=== PATIENT | male | born 1970 | race Two or more races ===

== ENCOUNTER 2022-12-31 06:16 | Day surgery (SDC) | payer OTHER, SELFPAY ==
[2022-12-31 06:36] VITALS: BP 172/81; PULSE 95; RESP 20; TEMP 36.3; O2SAT 97; BMI 60.4
[2022-12-31 06:45] LABS: Glucometer 114 mg/dL (74-106)
[2022-12-31] MEDS: LACTATED RINGER'S SOLUTION 1,000 ML 50 ML IV (07:18)
[2022-12-31 08:09] VITALS: BP 175/87; PULSE 77; RESP 20; TEMP 36.1; O2SAT 96
--- NOTE | 2022-12-31 08:16 | OP_ITS ---
OPERATION DATE: ??12/31/2022 PREOPERATIVE DIAGNOSIS:? Anemia. POSTOPERATIVE DIAGNOSIS: Antral gastritis and small superficial ulcerations, large sigmoid polyp. PROCEDURE:? EGD with antral biopsy and colonoscopy to cecum with hot snare polypectomy x1 for distal sigmoid polyp. SURGEON:? Logan Ramirez M.D. ANESTHESIA:? Monitored anesthesia care. ESTIMATED BLOOD LOSS:? Less than 1 mL. INDICATIONS AND CONSENT:? Patient is a 62-year-old male presents for evaluation of anemia.? Indications, risks, benefits, alternatives of proceeding with EGD and colonoscopy were explained extensively to the patient, including the risks of bleeding, aspiration, esophageal/gastric/duodenal or colonic perforation or anesthetic complications.? All of his questions were answered.? Informed consent was obtained. PROCEDURE:? Patient was brought to the operating room, placed in the left lateral decubitus position.? Monitored anesthesia care was provided.? Bite block was placed in the patient?s mouth.? Scope was entered into the oropharynx.? Under direct visualization, it was advanced into the esophagus, past the cricopharyngeus, down to the stomach.? The stomach was insufflated with air.? The pylorus was traversed down to the descending portion of the duodenum.? There was no evidence of duodenitis or ulceration.? There was no scarring within the pyloric channel.?? Scope was pulled back into the stomach and retroflexed.? There was no significant hiatal hernia.? Within the antrum, there was noted to be some mild antral gastritis with some superficial ulcerations.? No old or new blood.? Biopsies were obtained with cold biopsy forceps with good hemostasis.? The GE junction was noted at approximately 42 cm.? There was noted to be some mild distal esophagitis without Reed?s changes. The remainder of the esophagus was unremarkable.? The scope was then withdrawn.? Patient was then positioned for colonoscopy.? Rectal exam was performed, which showed no masses or blood.? The scope was then inserted into the anal canal.? Under direct visualization, it was advanced.? It was advanced to the cecum where cecal markings were clearly identified.? There was noted to be a fair prep with some liquid and semi-solid stool throughout the colon that was partially irrigated clear.? Upon withdrawal of the scope, mucosal surfaces were carefully examined.? There were no inflammatory changes or ulcerations.? There was no significant diverticulosis.? In the distal sigmoid, at approximately 35 cm, there was noted to be a large 2.5 cm pedunculated polyp that was removed with snare in a piecemeal fashion.? There was good hemostasis. The scope was retroflexed in the anal canal.? There were prominent rectal veins.? No significant hemorrhoidal disease.? The scope was then withdrawn.? The patient tolerated procedure well, was sent to recovery room in good condition. f/u colonoscopy should be in 5 years, but may change based on pathology. CC:? Patient?s family physician MIRZA
[2022-12-31 08:24] VITALS: BP 169/87; PULSE 71; RESP 18; TEMP 36.6; O2SAT 96
[2022-12-31 08:39] VITALS: BP 175/80; PULSE 73; RESP 18; TEMP 36.3; O2SAT 96
== END 2022-12-31 09:00 | disposition home or self-care (01) ==
PROVIDERS: PCP Family Medicine; Visit Provider Surgery
PROC: (CPT 43239; principal; 2022-12-31 07:30)
DX: D12.5 Benign neoplasm of sigmoid colon (principal); D64.9 Anemia, unspecified; E11.9 Type 2 diabetes mellitus without complications; E66.01 Morbid (severe) obesity due to excess calories; E78.1 Pure hyperglyceridemia; Z68.44 Body mass index [BMI] 60.0-69.9, adult; Z79.84 Long term (current) use of oral hypoglycemic drugs; Z87.891 Personal history of nicotine dependence; K25.9 Gastric ulcer, unspecified as acute or chronic, without hemorrhage or perforation; K20.90 Esophagitis, unspecified without bleeding
CPT/HCPCS: 43239; 45385; 36415; 82948; 88305; 88342; J2704

== ENCOUNTER 2023-12-24 06:50 | Outpatient (OUT) | payer OTHER, SELFPAY ==
[2023-12-24 07:09] LABS: Basophils Absolute Auto 0.1 10^3/uL (0.0-0.1); Basophils Percent Auto 0.4 % (0.2-2.0); Eosinophils Absolute Auto 0.1 10^3/uL (0.0-0.7); Eosinophils Percent Auto 0.8 % (0.9-7.0); Hematocrit 39.9 % (42.0-54.0); Hemoglobin 13.1 g/dL (14.0-18.0); Immature Granulocytes Abs Auto 0.05 10^3/uL (0.00-0.03); Immature Granulocytes Pct Auto 0.4 % (0.0-0.5); Lymphocytes Absolute Auto 4.3 10^3/uL (1.2-3.8); Lymphocytes Percent Auto 33.9 % (20.5-60.0); Mean Corpuscular HGB Conc 32.8 g/dL (29.9-35.2); Mean Corpuscular Hemoglobin 28.7 pg (25.9-34.0); Mean Corpuscular Volume 87.5 fL (80.0-94.0); Mean Platelet Volume 10.8 fL (9.5-13.5); Monocytes Absolute Auto 0.9 10^3/uL (0.3-0.8); Monocytes Percent Auto 7.2 % (1.7-12.0); Neutrophils Absolute Auto 7.3 10^3/uL (1.4-6.5); Neutrophils Percent Auto 57.3 % (43.0-75.0); Platelet Count 245 10^3/uL (150-450); Red Blood Count 4.56 10^6/uL (4.70-6.10); Red Cell Distribution Width 14.4 % (11.0-15.0); White Blood Count 12.7 10^3/uL (4.0-11.0)
[2023-12-24 07:35] LABS: Estimated Average Glucose 108 mg/dL; Glycohemoglobin A1C 5.4 % (4.5-6.2)
[2023-12-24 07:50] LABS: Alanine Aminotransferase 35 U/L (16-63); Albumin Globulin Ratio 0.9; Albumin Level 3.5 g/dL (3.4-5.0); Alkaline Phosphatase 86 U/L (46-116); Anion Gap 13.1; Aspartate Amino Transferase 12 U/L (15-37); BUN Creatinine Ratio 14.4; Bilirubin Total 0.4 mg/dL (0.2-1.0); Calcium 8.4 mg/dL (8.5-10.1); Carbon Dioxide 27.1 mmol/L (21.0-32.0); Chloride 101 mmol/L (98-107); Chol HDL Ratio 4.3; Cholesterol 146 mg/dL (<=200); Estimated GFR (African America >60 (>=60); Estimated GFR (Non-African Ame >60 (>=60); Free T3 1.72 pg/mL (2.18-3.98); Globulin 4.1 g/dL; Glucose 92 mg/dL (74-106); HDL Cholesterol 34 mg/dL (40-60); Potassium 4.2 mmol/L (3.5-5.1); Sodium 137 mmol/L (136-145); Thyroid Stimulating Hormone 1.141 uIU/mL (0.358-3.740); Total Protein 7.6 g/dL (6.4-8.2); Triglycerides 74 mg/dL (<=150); VLDL CHOLESTEROL 14.8 mg/dL
[2023-12-24 07:53] LABS: Prostate Specific Antigen Dx 0.36 ng/mL (<=4.00)
== END 2023-12-24 06:51 | disposition home or self-care (01) ==
LOC: LAB 06:52
PROVIDERS: PCP Family Medicine; Visit Provider Family Medicine
DX: Z00.00 Encounter for general adult medical examination without abnormal findings (principal)
CPT/HCPCS: 36415; 80053; 80061; 83036; 84153; 84436; 84443; 84481; 85025

== ENCOUNTER 2024-02-23 07:01 | Outpatient (OUT) | payer OTHER, SELFPAY ==
--- OUTSIDE RECORDS SUMMARY | 2024-02-23 07:05 | XMS_ITS | CCD ---
Author Organization [facility] Care Team Providers Care Commissary Worker Name Role Phone Eladio Wright Unavailable Susanna Clark Unavailable Eladio Wright Primary Care Physician NILL ., DR MCLAUGHLIN Admitting Unavailable NILL ., DR MCLAUGHLIN Attending Unavailable HOY ., DR HENDRICKS Primary Care Unavailable HOY ., DR HENDRICKS Admitting Unavailable HOY ., DR HENDRICKS Primary Care Unavailable HOY ., DR HENDRICKS Consulting Unavailable HOY ., DR HENDRICKS Attending Unavailable STACIALLissette Attending Unavailable Lissette HINES Attending Unavailable STACIALLissette Attending Unavailable Unavailable Primary Care Provider UnavailJADYN Gill Attending Unavailable CHAY SHELTON Referring Unavailable JADYN LAIRD Attending Unavailable JADYN LAIRD Referring Unavailable ELADIO WRIGHT Primary Care Unavailable JADYN LAIRD Referring Unavailable ELADIO WRIGHT Primary Care Unavailable Allergies Allergy Classification Reported Allergen(s) Allergy Type Date of Onset Reaction(s) Facility (1 source) No Known Medication Allergies; Translations: [No Known Medication Allergies] Propensity to adverse reactions (disorder) [facility] Medications Current Medications Medication Drug Class(es) Dates Sig (Normalized) Sig (Original) Azithromycin (2 sources) Macrolide Antimicrobial Azithromycin Active carvedilol 6.25 mg oral tablet (1 source) alpha-Adrenergic Keo, beta-Adrenergic Keo Start: 09-05-2023 carvediloL (COREG) 6.25 mg tablet 1 tablet (6.25 mg total) in the morning and 1 tablet (6.25 mg total) in the evening. Take with meals. 0 09/05/2023 Active ciprofloxacin 500 mg oral tablet (1 source) Quinolone Antimicrobial Start: 09-18-2023 take 1 tablet by mouth every twelve hours ciprofloxacin HCl (CIPRO) 500 mg tablet TAKE 1 TABLET BY MOUTH EVERY 12 HOURS FOR 7 DAYS 0 09/18/2023 Active Dexamethasone (2 sources) Corticosteroid Dexamethasone Active glimepiride 4 mg oral tablet (2 sources) Sulfonylurea Start: 09-07-2023 glimepiride (AMARYL) 4 mg tablet 1 tablet (4 mg total). 0 09/07/2023 Active Start: 11-06-2022 take 1 tablet by deondre once daily glimepiride 4 mg Tab 4 mg = 1 tab(s), Oral, Daily, Refills(s) 0 Start Date: 11/06/22 Status: Ordered indomethacin 50 mg oral capsule (1 source) Nonsteroidal Anti-inflammatory Drug take 1 capsule by mouth in the morning, then take 1 capsule by mouth at mealtime indomethacin (INDOCIN) 50 mg capsule Take 1 capsule (50 mg total) by mouth in the morning and 1 capsule (50 mg total) in the evening. Take with meals. 0 Active lisinopril 10 mg oral tablet (2 sources) Angiotensin Converting Enzyme Inhibitor Start: take 1 tablet by mouth once daily lisinopril 10 mg Tab 10 mg = 1 tab(s), Oral, Daily, Refills(s) 0 Start Date: 11/06/22 Status: Ordered metFORMIN hydrochloride 500 mg oral tablet (4 sources) Biguanide Start: take 1 tablet by mouth twice daily metformin 500 mg Tab 500 mg = 1 tab(s), Oral, BID, Refills(s) 0 Start Date: 11/06/22 Status: Ordered metFORMIN HCl Ac tive pioglitazone 15 mg oral tablet (2 sources) Peroxisome Proliferator Receptor alpha Agonist, Peroxisome Proliferator Receptor gamma Agonist, Thiazolidinedione Start: 11-06-2022 take 1 tablet by mouth once daily pioglitazone 15 mg Tab 15 mg = 1 tab(s), Oral, Daily, Refills(s) 0 Start Date: 11/06/22 Status: Ordered semaglutide (OZEMPIC SUBQ) (1 source) semaglutide (OZEMPIC SUBQ) Inject under the skin once a week. On Sundays 0 Active Problems Active Problems Problem Classification Problem Date Documented Date Episodic/Chronic Coronary atherosclerosis and other heart disease (2 sources) Atypical angina; Translations: [Anginal equivalent] Onset: 09-25-2023 Chronic Deficiency and other anemia (2 sources) Anemia; Translations: [Anemia, unspecified] Onset: 3 Episodic Diabetes mellitus without complication (1 source) Diabetes mellitus 11-06-2022 Chronic Disorders of lipid metabolism (1 source) Hypertriglyceridemia 11-06-2022 Chronic Essential hypertension (2 sources) Hypertensive disorder; Translations: [Essential (primary) hypertension] Onset: 4 09-25-2023 Chronic Other nutritional; endocrine; and metabolic disorders (1 source) Body mass index 40+ - severely obese; Translations: [Body mass index (BMI) 60.0-69.9, adult] Onset: 3 Chronic Other nutritional; endocrine; and metabolic disorders (2 sources) Morbid obesity 11-06-2022 Chronic Other screening for suspected conditions (not mental disorders or infectious disease) (1 source) Encounter for screening for malignant neoplasm of prostate; Translations: [ENC SCREEN MALIG NEOPLASM PROSTATE] Onset: 3 Episodic Residual codes; unclassified (1 source) Peripheral edema; Translations: [Edema, unspecified] 09-25-2023 Episodic Residual codes; unclassified (1 source) Edema, unspecified; Translations: [Edema, unspecified] Onset: 4 Episodic Unclassified (1 source) New Patient Onset: 4 Past or Other Problems Problem Classification Problem Date Documented Da te Episodic/Chronic Immunizations and screening for infectious disease (1 source) Encounter for screening for other viral diseases Onset: 06-29-2021 Resolved: 06-29-2021 Episodic Results Test Name Value Interpretation Reference Range Facility CT CTA COR ARTERIES W OR WO SCORINGon 11-09-2023 CT CTA COR ARTERIES W OR WO SCORING CT CTA COR ARTERIES W OR WO SCORING CLINICAL INFORMATION: Chest pain, anginal equivalent. TECHNIQUE: Computed tomography (CT) of the heart was obtained using electrocardiography (ECG) triggering. 100 mL of Omni 350 contrast was administered intravenously. In preparation for the examination, the patient received 20 mg oral metoprolol for heart rate/rhythm control and 0.4 mg sublingual nitroglycerin tablet for coronary vasodilation. There were no complications 3-D volume rendered maximum intensity projection images were generated and reviewed under concurrent physician supervision on an independent workstation.. No FFR performed. All CT scans at this facility use dose modulation, iterative reconstruction, and/or weight based dosing when appropriate to reduce radiation dose to as low as reasonably achievable. COMPARISON: No relevant prior studies available. EXTRACARDIAC FINDINGS: Visualized portions of the lungs, upper abdomen, and mediastinum show no focal abnormalities. CARDIAC MORPHOLOGY: The right atrium is normal. The right ventricle is normal. The left atrium is normal. The left ventricle is normal. Valves . The pericardium is normal CALCIUM SCORE: Agatston Score: The total (aggregate) calcium score using the AJ-130 method is 21. Total volume score is 18. 50% of similar patients have less coronary artery calcium {this is reported using the interactive CASTILLO form found at [email or web address].castillo-nhlbi.o rg} Individual major vessel AJ-130 scores are: LM = 14.5 LAD = 1.4 LCX = 3.2 RCA/PDA = 1.8 Other = [address] Angiogram: The overall quality of the CT angiographic examination is suboptimal. It is compromised by poor arterial opacification. Coronary Artery Angiogram Findings: Stenoses are reported as maximum percentage diameter stenosis. Stenosis grading is reported using the following scheme: Normal: no stenosis Mild: 1-49% stenosis Moderate: 50-70% stenosis Severe: >70% stenosis Occluded The coronary artery system is right dominant with normal origins. The LM has no stenosis with mild plaque. The proximal LAD and first diagonal branch (D1) have no stenosis with mild plaque. The mid-distal LAD, is not well opacified and demonstrates atherosclerotic plaques with mild to moderate stenosis.. The LCx and its obtuse marginal (OM) show mild atherosclerotic plaques without proximal stenosis, the mid and distal circumflex and obtuse marginal are not well opacified. The RCA show no proximal stenosis, the mid and distal RCA are not well opacified.. IMPRESSION: 1. Suboptimal opacification of the coronary arteries revealed mild atherosclerotic plaques in all 3 vessels ; suspect mild stenosis of the proximal LAD, and mild to moderate stenosis of the mid LAD. 2. The mid to distal vessels are not well opacified and could not be evaluated. No FFR performed. Total calcium score of 21; 50% of similar patients have less coronary artery calcium. Consider further evaluation if there is multi-vessel or left main predominant disease present. The coronary arteries and cardiac structures were co-interpreted by Dr. Miguel Kauffman MD of the department of radiology and Dr. Tawana Becker M.D. of department of cardiology. The extracardiac structures including the lungs were solely interpreted by Dr. Miguel Kauffman MD of the department of radiology. Calcium Score interpretation and guidelines for asymptomatic individuals, 45 - 75 years of age are as follows: Estimated Risk of a Total Score Relative Risk Coronary Event Each Year 0 very low risk 2 per 1000 1-10 low risk 5 per 1000 11-100 intermediate risk 5 to 20 per 1000 101-400 moderately high risk more than 2 per 100 over 400 high risk between 2 and 5 per 100; approximately 15% chance of significant blockages; consideration should be given to obtaining stress echo or stress nuclear testing. Finalized by Miguel Kauffman MD on 11/09/2023 2:27 PM Normal [facility] Creatinine (Bld) [Mass/Vol]o n 11-05-2023 Creatinine [Mass/Vol] 0.6 mg/dL Low 0.7-1.2 [facility] Comment on above: Result Comment: METH OD TRACEABLE TO IDMS STANDARD Performed By: #### 3 8483-4 #### [facility] ([id number]) [address] [place] [address] eGFR (CKD-EPI) NON-RACE DEPENDENT >90 Normal >59 [facility] Comment on above: Result Comment: Reported eGFR is based on the CKD-EPI 2020 equation that does not use a race coefficient. Performed By: #### 3 8483-4 #### [facility] ([id number]) [place] [address] Reminderson 01-12-2023 Reminders - From: Bessie Wasserman LPN To: GSN - Clinical; Sent: 01/12/2023 16:11:25 EDT Show up: 12/01/2027 07:00:00 EDT Subject: colonoscopy recall Due Date/Time: 01/01/2028 07:00:00 EDT Reminder/Recall Patient due for surveillance colonoscopy 01/01/2028 due to history of tubular adenoma. Normal [facility] Pathology Noteon 01-06-2023 Pathology Note [id number]#1.00CD :127 Normal [facility] Outside Colonoscopyon 2022 Outside Colonoscopy [id number]#1.00CD :127 [facility] Lab Reportson 12-31-2022 Lab Reports [id number]#1.00C D:127 [facility] Pre-Certification Formon Pre-Certification Form [id number]#1.00 CD:127 [facility] Consent for Procedure/Surger yon 11-13-2022 Consent for Procedure/Surgery [id number] D:127 [facility] Facesheeton 11-13-2022 Facesheet [id number]#1.00C D:127 [facility] Ambulatory Visit Summaryon 0 11-11-2022 Ambulatory Visit Summary RODDY GONCALVES JR :1970 Visit Date:11/11/2022 Ambulatory Visit Instructions Your Diagnosis Anemia BMI 60.0-69.9, adult Your Care Team Attending Physician - DONNY SKINNER, Lissette Ruiz Primary Care Physician - Eladio Wright MD This Is Your Medications List glimepiride (glimepiride 4 mg Tab) lisinopril (lisinopril 10 mg Tab) metformin (metformin 500 mg Tab) pioglitazone (pioglitazone 15 mg Tab) Procedures Performed Vasectomy. Discharge Vitals Heart Rate (Peripheral) 80 Respiratory Rate 16 Blood Pressure 140/88 Height 182.8 cm Height 72 in Weight 200.5 kg Weight 441.1 lb BMI 60 Medications What How Much When Instructions Unchanged glimepiride (glimepiride 4 mg Tab) 1 Tablets By Mouth Every day Unchanged lisinopril (lisinopril 10 mg Tab) 1 Tablets By Mouth Every day Unchanged metformin (metformin 500 mg Tab) 1 Tablets By Mouth 2 times a day Unchanged pioglitazone (pioglitazone 15 mg Tab) 1 Tablets By Mouth Every day Medications and Immunizations Administered Not Given influenza virus vaccine, inactivated, Patient Refuses Allergies No Known Allergies No Known Medication Allergies Problems Ongoing - Any problem that you are currently receiving treatment for. Anemia BMI 60.0-69.9, adult Diabetes Hypertriglyceridemia Morbid obesity Normal [facility] Physician Referralon 023 Physician Referral [id number] D:127 Normal [facility] CBC AUTO DIFFon 10-27-2022 BASO # 0.1 103/ul Normal 0.0-0.1 [facility] Comment on above: Performed By: #### C BC #### [facility] [address] [address] [address] Azam Camilo Basophils/100 WBC (Bld) 0.5 % Normal 0.2-2.0 [facility] Comment on above: Performed By: #### C BC #### [facility] [address] [address] [address] Azam Camilo EO # 0.1 103/ul Normal 0.0-0.7 [facility] Comment on above: Performed By: #### C BC #### [facility] [address] [place] [address] Dr. Azam Camilo Eosinophils/100 WBC (Bld) 1.0 % Normal 0.9-7.0 [facility] Comment on above: Performed By: #### C BC #### [facility] [address] [place] [address] Dr. Azam Camilo Erythrocyte distribution width (RBC) [Ratio] 14.6 % Normal 11.0-15.0 [facility] Comment on above: Performed By: #### C BC #### [facility] [address] [place] [address] Dr. Azam Camilo Hematocrit (Bld) [Volume fraction] 40.5 % Critically low 42.0-54.0 [facility] Comment on above: Performed By: #### C BC #### [facility] [address] [place] [address] Dr. Azam Camilo Hemoglobin (Bld) [Mass/Vol] 13.3 g/dL Critically low 14.0-18.0 [facility] Comment on above: Performed By: #### C BC #### [facility] [address] [place] [address] Dr. Azam Camilo IG # 0.03 10e3/ul Normal 0.00-0.03 [facility] Comment on above: Performed By: #### C BC #### [facility] [address] [place] [address] Dr. Azam Camilo IG % 0.3 % Normal 0.0-0.5 [facility] Comment on above: Performed By: #### C BC #### [facility] [address] [place] [address] Dr. Azam Camilo LYMPH # 3.3 103/ul Normal 1.2-3.8 [facility] Comment on above: Performed By: #### C BC #### [facility] [address] [place] [address] Dr. Azam Camilo Lymphocytes/100 WBC (Bld) 32.9 % Normal 20.5-60.0 [facility] Comment on above: Performed By: #### C BC #### [facility] [address] [place] [address] Dr. Azam Camilo MANUAL DIFF REQ NO Normal [facility] Comment on above: Performed By: #### C BC #### [facility] [address] [place] [address] Dr. Azam Camilo MCH (RBC) [Entitic mass] 28.2 pg Normal 25.9-34.0 [facility] Comment on above: Performed By: #### C BC #### [facility] [address] [place] [address] Dr. Azam Camilo MCHC (RBC) [Mass/Vol] 32.8 g/dL Normal 29.9-35.2 [facility] Comment on above: Performed By: #### C BC #### [facility] [address] [place] [address] Dr. Azam Camilo MCV (RBC) [Entitic vol] 85.8 fL Normal 80.0-94.0 [facility] Comment on above: Performed By: #### C BC #### [facility] [address] [place] [address] Dr. Azam Camilo MONO # 0.6 103/ul Normal 0.3-0.8 [facility] Comment on above: Performed By: #### C BC #### [facility] [address] [place] [address] Dr. Azam Camilo Monocytes/100 WBC (Bld) 6.4 % Normal 1.7-12.0 [facility] Comment on above: Performed By: #### C BC #### [facility] [address] [place] [address] Dr. Azam Camilo NEUT # 5.9 103/ul Normal 1.4-6.5 [facility] Comment on above: Performed By: #### C BC #### [facility] [address] [place] [address] Dr. Azam Camilo Neutrophils/100 WBC (Bld) 58.9 % Normal 43.0-75.0 [facility] Comment on above: Performed By: #### C BC #### [facility] [address] [address] [address] Azam Camilo Platelet mean volume (Bld) [Entitic vol] 10.7 fL Normal 9.5-13.5 [facility] Comment on above: Performed By: #### C BC #### [facility] [address] [place] [address] Dr. Azam Camilo PLT 226 103/ul Normal 150-450 [facility] Comment on above: Performed By: #### C BC #### [facility] [address] [address] [address] Azam Camilo RBC 4.72 106/ul Normal 4.70-6.10 [facility] Comment on above: Performed By: #### C BC #### [facility] [address] [address] [address] Azam Camilo WBC 10.1 103/ul Normal 4.0-11.0 [facility] Comment on above: Performed By: #### C BC #### [facility] [address] [place] [address] Dr. Azam Camilo FREE T3on 10-27-2022 FREE T3 3.26 pg/mlL Normal 2.18-3.98 [facility] Comment on above: Performed By: #### T SH, LIPID, BMP, FT3, LIVER, T4 #### [facility] [address] [place] [address] Dr. Azam Camilo GLYCOHEMOGLOBIN A1Con 2022 ADA RECOMMENDATION SEE BELOW Normal [facility] Comment on above: Result Comment: ADA RECOMMENDED LIMIT 4.0 - 6.0 ADA THERAPEUTIC TARGET < 7.0 ACTION SUGGESTED > 7.0 Performed By: #### A 1C #### [facility] [address] [place] [address] Dr. Azam Camilo Glucose [Mass/Vol] 146 mg/dL Normal [facility] Comment on above: Performed By: #### A 1C #### [facility] [address] [place] [address] Dr. Azam Camilo HbA1c (Bld) [Mass fraction] 6.7 % Critically high 4.5-6.2 [facility] Comment on above: Performed By: #### A 1C #### [facility] [address] [address] [address] Azam Camilo LIPID PROFILEon 10-27-2022 CHOL-HDL RATIO NORM SEE BELOW Normal [facility] Comment on above: Result Comment: 3.3 - 4.4 LOW RISK 4.4 - 7.1 AVERAGE RISK 7.1 - 11.0 MODERATE RISK >11.0 HIGH RISK Performed By: #### T SH, LIPID, BMP, FT3, LIVER, T4 #### [facility] [address] [address] [address] Azam Camilo Cholesterol [Mass/Vol] 136 mg/dL Normal <=200 [facility] Comment on above: Performed By: #### T SH, LIPID, BMP, FT3, LIVER, T4 #### [facility] [address] [address] [address] Azam Camilo Cholesterol in HDL [Mass/Vol] 31 mg/dL Critically low 40-60 [facility] Comment on above: Performed By: #### T SH, LIPID, BMP, FT3, LIVER, T4 #### [facility] [address] [address] [address] Aazm Camilo Cholesterol in LDL [Mass/Vol] 81.2 mg/dL Normal [facility] Comment on above: Performed By: #### T SH, LIPID, BMP, FT3, LIVER, T4 #### [facility] [address] [address] [address] Azam Camilo Cholesterol.total/C holesterol in HDL [Mass ratio] 4.4 {ratio} Normal [facility] Comment on above: Performed By: #### T SH, LIPID, BMP, FT3, LIVER, T4 #### [facility] [address] [address] [address] Azam Camilo HDL NORMAL > or = 60 mg/dl - LO W CARDIOVASCULAR RISK <40 mg/dl - HIGH CARDIOVASCULAR RISK Normal [facility] Comment on above: Performed By: #### T SH, LIPID, BMP, FT3, LIVER, T4 #### [facility] [address] [address] [address] Azam Camilo LDL CALC NORMAL SEE BELOW Normal [facility] Comment on above: Result Comment: <100 mg/dl OPTIMAL 100 - 129 mg/dl NEAR OR ABOVE OPTIMAL 130 - 159 mg/dl BORDERLINE HIGH 160 - 189 mg/dl HIGH >190 mg/dl VERY HIGH Performed By: #### T SH, LIPID, BMP, FT3, LIVER, T4 #### [facility] [address] [address] [address] Azam Camilo Triglyceride [Mass/Vol] 119 mg/dL Normal <=150 [facility] Comment on above: Performed By: #### T SH, LIPID, BMP, FT3, LIVER, T4 #### [facility] [address] [address] [address] Azam Camilo VLDL CALC 23.8 mg/dL Normal [facility] Comment on above: Performed By: #### T SH, LIPID, BMP, FT3, LIVER, T4 #### [facility] [address] [address] [address] Azam Camilo LIVER PROFILEon 10-27-2022 Albumin [Mass/Vol] 3.6 g/dL Normal 3.4-5.0 [facility] Comment on above: Performed By: #### T SH, LIPID, BMP, FT3, LIVER, T4 #### [facility] [address] [address] [address] Azam Camilo Albumin/Globulin [Mass ratio] 0.9 {ratio} Normal [facility] Comment on above: Performed By: #### T SH, LIPID, BMP, FT3, LIVER, T4 #### [facility] [address] [address] [address] Azam Camilo ALP [Catalytic activity/Vol] 103 U/L Normal 46-116 [facility] Comment on above: Performed By: #### T SH, LIPID, BMP, FT3, LIVER, T4 #### [facility] [address] [place] [address] Dr. Azam Camilo ALT [Catalytic activity/Vol] 39 U/L Normal 16-63 [facility] Comment on above: Performed By: #### T SH, LIPID, BMP, FT3, LIVER, T4 #### [facility] [address] [address] [address] Azam Camilo AST [Catalytic activity/Vol] 14 U/L Critically low 15-37 [facility] Comment on above: Performed By: #### T SH, LIPID, BMP, FT3, LIVER, T4 #### [facility] [address] [place] [address] Dr. Azma Camilo BILI, CONJUGATED 0.1 mg/dL Normal 0.0-0.2 [facility] Comment on above: Performed By: #### T SH, LIPID, BMP, FT3, LIVER, T4 #### [facility] [address] [address] [address] Azam Camilo Bilirubin [Mass/Vol] 0.3 mg/dL Normal 0.2-1.0 [facility] Comment on above: Performed By: #### T SH, LIPID, BMP, FT3, LIVER, T4 #### [facility] [address] [place] [address] Dr. Azam Camilo Globulin (S) [Mass/Vol] 4.1 g/dL Normal [facility] Comment on above: Performed By: #### T SH, LIPID, BMP, FT3, LIVER, T4 #### [facility] [address] [place] [address] Dr. Azam Camilo Protein [Mass/Vol] 7.7 g/dL Normal 6.4-8.2 [facility] Comment on above: Performed By: #### T SH, LIPID, BMP, FT3, LIVER, T4 #### [facility] [address] [place] [address] Dr. Azam Camilo PROF CHEM 8 (BAS METB)on Anion gap [Moles/Vol] 11.1 mmol/L Normal [facility] [facility] Comment on above: Performed By: #### T SH, LIPID, BMP, FT3, LIVER, T4 #### [facility] [address] [place] [address] Dr. Azam Camilo Calcium [Mass/Vol] 8.6 mg/dL Normal 8.5-10.1 [facility] Comment on above: Performed By: #### T SH, LIPID, BMP, FT3, LIVER, T4 #### [facility] [address] [address] [address] Azam Camilo Chloride [Moles/Vol] 104 mmol/L Normal 98-107 [facility] Comment on above: Performed By: #### T SH, LIPID, BMP, FT3, LIVER, T4 #### [facility] [address] [address] [address] Azam Camilo CO2 [Moles/Vol] 27.9 mmol/L Normal 21.0-32.0 [facility] Comment on above: Performed By: #### T SH, LIPID, BMP, FT3, LIVER, T4 #### [facility] [address] [address] [address] Azam Camilo Creatinine [Mass/Vol] 0.93 mg/dL Normal 0.70-1.30 [facility] Comment on above: Performed By: #### T SH, LIPID, BMP, FT3, LIVER, T4 #### [facility] [address] [place] [address] Dr. Azam Camilo EGFR-AF THAI >60 Normal >=60 [facility] Comment on above: Performed By: #### T SH, LIPID, BMP, FT3, LIVER, T4 #### [facility] [address] [place] [address] Dr. Azam Camilo EGFR-NON AF THAI >60 Normal >=60 [facility] Comment on above: Performed By: #### T SH, LIPID, BMP, FT3, LIVER, T4 #### [facility] [address] [place] [address] Dr. Azam Camilo Glucose [Mass/Vol] 133 mg/dL Critically high 74-106 [facility] Comment on above: Performed By: #### T SH, LIPID, BMP, FT3, LIVER, T4 #### [facility] [address] [place] [address] Dr. Azam Camilo Potassium [Moles/Vol] 4.0 mmol/L Normal 3.5-5.1 [facility] Comment on above: Performed By: #### T SH, LIPID, BMP, FT3, LIVER, T4 #### [facility] [address] [address] [address] Azam Camilo Sodium [Moles/Vol] 139 mmol/L Normal 136-145 [facility] Comment on above: Performed By: #### T SH, LIPID, BMP, FT3, LIVER, T4 #### [facility] [address] [address] [address] Azam Camilo Urea nitrogen [Mass/Vol] 15.0 mg/dL Normal 7.0-18.0 [facility] Comment on above: Performed By: #### T SH, LIPID, BMP, FT3, LIVER, T4 #### [facility] [address] [place] [address] Dr. Azam Camilo Urea nitrogen/Creatinine [Mass ratio] 16.1 mg/mg Normal [facility] Comment on above: Performed By: #### T SH, LIPID, BMP, FT3, LIVER, T4 #### [facility] [address] [address] [address] Azam Camilo T4on 10-27-2022 T4 [Mass/Vol] 7.80 ug/dL Normal 4.50-12.10 [facility] Comment on above: Performed By: #### T SH, LIPID, BMP, FT3, LIVER, T4 #### [facility] [address] [place] [address] Dr. Azam Camilo TSHon 10-27-2022 TSH 1.244 uIU/mL Normal 0.358-3.740 [facility] Comment on above: Performed By: #### T SH, LIPID, BMP, FT3, LIVER, T4 #### [facility] [address] [place] [address] Dr. Azam Camilo COVID Quick Testingon [address] Other Vital Signs Date Time Vital Sign Value Performing Clinician Ed mann 09-25-2023 09:22-0400 Body height 177.8 cm Jadyn Laird MD Work Phone: [employer] 09-25-2023 09:22-0400 Body mass index (BMI) [Ratio] 59.83 kg/m2 Jadyn Laird MD Work Phone: [facility] 09-25-2023 09:22-0400 Body weight 189.15 kg Jadyn Laird MD Work Phone: [facility] 09-25-2023 09:22-0400 Diastolic blood pressure 80 mm[Hg] Jadyn Laird MD Work Phone: [facility] 09-25-2023 09:22-0400 Heart rate 72 /min Jadyn Laird MD Work Phone: [facility] 09-25-2023 09:22-0400 SaO2% (BldA) [Mass fraction] 97 % Jadyn Laird MD Work Phone: [facility] 09-25-2023 09:22-0400 Systolic blood pressure 142 mm[Hg] Jadyn Laird MD Work Phone: [facility] 11-11-2022 14:18-0400 Blood Pressure Location Lissette HINES [facility] [place] 11-11-2022 14:18-0400 Diastolic blood pressure 88 mm[Hg] Lissette PALOMOL [facility] [place] 11-11-2022 14:18-0400 Heart rate 80 /min Lissette HINES [facility] [place] 11-11-2022 14:18-0400 Respiratory rate 16 /min Lissette NILL [facility] [place] 11-11-2022 14:18-0400 Systolic blood pressure 140 mm[Hg] Lissette HINES [facility] [place] Encounters Encounter Date Encounter Type Care Provider Facility Start: 11-09-2023 End: 11-10-2023 ambulatory JADYN LAIRD [facility] Start: 11-05-2023 End: 11-06-2023 ambulatory JADYN LAIRD [facility] Start: 09-25-2023 End: 09-25-2023 [facility] Start: 09-25-2023 [facility]counter for [facility]cedural [facility] Start: 09-25-2023 End: 09-25-2023 Office outpatient new 45 minutes Jadyn Laird MD Work Phone: [facility] Comment on above: Anginal equivalent ( Primary Dx); Preoperative cardiovascular examination; Hypertension, unspecified type; Peripheral edema Start: 09-25-2023 End: 09-25-2023 Patient encounter status Jadyn Laird MD Work Phone: [facility] Start: 09-24-2023 Telephone encounter Roxanna Henson LPN [facility] Start: 09-23-2023 Chart abstracting Scanning Pro vider External [facility] Start: 01-06-2023 ambulatory Lissette HINES Facility :[facility] Start: 12-31-2022 End: 01-01-2023 ambulatory Lissette HINES Facility:[id number] Start: 12-03-[address] LISSETTE HINES . Facil ity:[facility] Start: 11-11-2022 End: 11-12-2022 ambulatory Lissette HINES Facility:[facility] Start: 11-11-2022 End: 11-11-2022 Patient encounter procedure Lissette HINES [facility] [place] Start: 11-02-2022 Encounter for genera l adult medical examination without abnormal findings DR ELADIO WRIGHT . [facility] Start: 10-28-2022 ambulatory Lissette HINES Facility:[facility] [place] Start: 10-27-2022 End: 10-28-[address] ELADIO WRIGHT . Facility:[facility] Start: 10-27-2022 End: 10-28-2022 Encounter for general adult medical examination without abnormal findings DR ELADIO WRIGHT . Facility:[facility] Start: 06-29-2021 End: 06-29-2021 ambulatory Eladio Wright Other [address] Other Start: 06-29-2021 Encounter by annabella Hendricks [facility] Start: 06-29-2021 Office outpatient vi sit 5 minutes Susanna Clark [facility] Procedures Date Procedure Procedure Detail Performing Clinician Start: 10-27-[address] BOB HINES . Comment on above: Performed By: #### P [facility] #### [facility] [address] [place] [address] Dr. Azam Camilo Vasectomy Lissette HINES Plan of Treatment Date Care Activity Detail Author Start: 09-24-2024 Adult BMI Screening Adult BMI Screening [employer] Start: 11-09-2023 End: 11-09-2023 Patient encounter procedure 11/09/2023 3:15 PM EDT Appointment [facility] [address] [place] [address] [facility] Start: 09-25-2023 End: 09-24-2024 CTA Heart and Coronary arteries WO and W contrast IV CT angiogram coronary arteries with or without scoring Imaging Routine Anginal equivalent Expected: 09/25/2023, Expires: 09/24/2024 [employer] Work Phone: Comment on above: Expected: 09/25/2023, Expires: Start: 09-25-2023 End: 09-24-2024 Echo complete W/O contrast Echo complete W/O contrast Echocardiography Routine Preoperative cardiovascular examination Anginal equivalent Expected: 09/25/2023, Expires: 09/24/2024 [employer] Comment on above: Expected: 09/25/2023, Expires: Start: 09-25-2023 End: 09-25-2023 Patient encounter procedure 09/25/2023 9:00 AM EDT Office Visit [facility] [address] [place] [address] Jadyn Laird MD [address] [place] [address] [facility] Start: 03-13-2023 COVID-19 Vaccine ( season) COVID-19 Vaccine ( season) [facility] Start: 03-13-2023 Influenza vaccination Influenza Vaccine [facility] Start: 2020 Administration of varicella zoster vaccine Zoster (Shingles) Vaccine (1 of 2) [facility] Start: 1989 DTaP,Tdap and Td Vaccines (1 - Tdap) DTaP,Tdap and Td Vaccines (1 - Tdap) [facility] Start: 1988 Adult BMI Follow Up Plan Adult BMI Follow Up Plan [facility] Start: 1988 Adult BMI Screening Adult BMI Screening [facility] Start: 1982 Depression Screening Depression Screening [facility] Start: 1982 Tobacco Screening Tobacco Screening [facility] Start: 1970 Tobacco Counseling Tobacco Counseling [facility] Immunizations Immunization Date Immunization Notes Care Provider Fa cility 10-19-2020 SARS-CoV-2 (COVID-19 ) Ad26 vaccine, recombinant Lissette HINES [facility] [place] Comment on above: Result Comment: 2022: TPV50 NEGATED: Highlighted row has not occurred!11-11-2022 influenza virus vaccine, unspecified formulation Lissette HINES [facility] [place] Payers Date Payer Category Payer Private Health Insurance [facility] PL[facility] [id number] 2022-Present [phone] [address] [address] [place] [address] [id number] 1970 Unknown [id number] [id number] 1970 Unknown [id number] [id number] 1970 Unknown [id number] [id number] 1970 Unknown [id number] [id number] 1970 Unknown [id number] [id number] 1970 Unknown [id number] [id number] 1970 Unknown [id number] [id number] 1970 Unknown [id number] [id number] 1959 Unknown [id number] Unknown [id number] Social History Date Type Detail Facility Start: 12-22-2018 End: 09-25-2023 Sex Assigned At [facility] Start: 11-11-2022 Tobacco smoking status Ex-smoker (finding) [facility] Tobacco smoking status Never [facility] Tobacco smoking status DEIS Tobacco smoking consumption unknown [facility] Start: 12-22-2018 End: 09-25-2023 History of Social function [facility] Start: 1970 Sex Assigned At Not on file P [facility] Start: 09-25-2023 Tobacco smoking status DEIS Occasional tobacco smoker [facility] History of tobacco use Cigarette Smoker [facility] Functional Status Date Assessment Result Facility 11-11-2022 Functional Status N/A [facility] Clinical Notes 06-29-2021 to 09-25-2023 Jadyn Laird MD - 09/25/2023 9:00 AM Lily Stephenson RN - 09/25/2023 9:00 AM EDTTeleagata Encounter - Roxanna Henson LPN - 09/24/2023 2:47 PM EDT Note Date & Type Note Facility 09-25-2023 History of Presen t illness Narrative Roddy Goncalves Date of visit: 09/25/2023 Date of : 1970 Age: 53 y.o. There is no problem list on file for this patient. No Known Allergies Current Outpatient Medications Medication Sig Dispense Refill carvediloL (COREG) 6.25 mg tablet 1 tablet (6.25 mg total) in the morning and 1 tablet (6.25 mg total) in the evening. Take with meals. ciprofloxacin HCl (CIPRO) 500 mg tablet TAKE 1 TABLET BY MOUTH EVERY 12 HOURS FOR 7 DAYS glimepiride (AMARYL) 4 mg tablet 1 tablet (4 mg total). indomethacin (INDOCIN) 50 mg capsule Take 1 capsule (50 mg total) by mouth in the morning and 1 capsule (50 mg total) in the evening. Take with meals. lisinopriL (PRINIVIL,ZESTRIL) 10 mg tablet Take 1 tablet (10 mg total) by mouth in the morning. metFORMIN (GLUCOPHAGE) 500 mg tablet Take 1 tablet (500 mg total) by mouth in the morning and 1 tablet (500 mg total) in the evening. Take with meals. pioglitazone (ACTOS) 15 mg tablet Take 1 tablet (15 mg total) by mouth in the morning. semaglutide (OZEMPIC SUBQ) Inject under the skin once a week. On Sundays No current facility-administered medications for this visit. Chief Complaint Patient presents with New Patient [facility] REFERRAL FROM [facility]:Hypertension, unspecified type [I10]; Peripheral edema [R60.9], Pre op Clearance-never seen cardio-sched w pt History of Present Illness 53-year-old male, known morbid obesity, diabetes, hypertension here for evaluation for episode of chest pain and preoperative risk stratification prior to bariatric surgery. Patient does reports an episode of chest pressure few months ago occurred at rest without radiation. He has not very active at baseline however he is trying to increase his activity. He has lost weight recently. Reports bilateral extremity edema, no PNDs orthopnea. No prior ischemic evaluation denies any family history of premature coronary disease. EKG showed normal sinus rhythm. Lipid panel performed in August 2023 noted cholesterol 146, LDL 90, HDL 31. Triglycerides 126. History reviewed. No pertinent past medical history. No data recorded No data recorded No data recorded History reviewed. No pertinent surgical history. History reviewed. No pertinent family history. Social History Socioeconomic History Marital status: Spouse name: Not on file Number of children: Not on file Years of education: Not on file Highest education level: Not on file Occupational History Not on file Tobacco Use Smoking status: Some Days Types: Cigarettes Smokeless tobacco: Not on file Substance and Sexual Activity Alcohol use: Not on file Drug use: Not on file Sexual activity: Not on file Other Topics Concern Caffeine Use Yes Social History Narrative Not on file Social Determinants of Health Financial Resource Strain: Not on file Food Insecurity: Not on file Transportation Needs: Not on file Physical Activity: Not on file Stress: Not on file Social Connections: Not on file Interpersonal Safety: Not on file Housing Instability: Not on file Review of Systems Review of Systems Constitutional: Negative for malaise/fatigue and night sweats. Cardiovascular: Negative for chest pain. Respiratory: Negative for cough, shortness of breath and wheezing. Musculoskeletal: Negative for joint pain and joint swelling. Gastrointestinal: Negative for bloating, abdominal pain, constipation, diarrhea, nausea and vomiting. Neurological: Negative for dizziness, headaches, light-headedness, loss of balance and numbness. Psychiatric/Behavioral: The patient is not nervous/anxious. CARDIOVASCULAR: Please review HPI. Physical Examination General appearance: Alert, oriented and cooperative. In no acute distress. Skin: Warm and dry to touch. Head: Normocephalic, without obvious abnormality, atraumatic. Ears, Nose, Mouth, Throat: Throat clear without erythema or exudate. Dentition intact. Eyes: Conjunctivae unremarkable, EOM intact. Neck: No JVD, No carotid bruit. Neck supple, trachea midline. Respiratory: Clear to auscultation bilaterally, no use of accessory muscles. Cardiovascular: RRR with normal S1 and S2 with no murmurs. Gastrointestinal: Soft, non-tender. Bowel sounds normal. Musculoskeletal: No peripheral edema. Neurologic: Oriented to time, person and place, affect appropriate. No focal/major motor defects noted. Psychiatric: Appropriate mood, memory and judgement. VITAL SIGNS: BP 142/80 Pulse 72 Ht 177.8 cm (5' 10 ) Wt (!) 189.1 kg (417 lb) SpO2 97% BMI 59.83 kg/m Orders Placed or Reconciled This Encounter Medications ciprofloxacin HCl (CIPRO) 500 mg tablet Sig: TAKE 1 TABLET BY MOUTH EVERY 12 HOURS FOR 7 DAYS glimepiride (AMARYL) 4 mg tablet Si tablet (4 mg total). carvediloL (COREG) 6.25 mg tablet Si tablet (6.25 mg total) in the morning and 1 tablet (6.25 mg total) in the evening. Take with meals. metFORMIN (GLUCOPHAGE) 500 mg tablet Sig: Take 1 tablet (500 mg total) by mouth in the morning and 1 tablet (500 mg total) in the evening. Take with meals. lisinopriL (PRINIVIL,ZESTRIL) 10 mg tablet Sig: Take 1 tablet (10 mg total) by mouth in the morning. pioglitazone (ACTOS) 15 mg tablet Sig: Take 1 tablet (15 mg total) by mouth in the morning. indomethacin (INDOCIN) 50 mg capsule Sig: Take 1 capsule (50 mg total) by mouth in the morning and 1 capsule (50 mg total) in the evening. Take with meals. semaglutide (OZEMPIC SUBQ) Sig: Inject under the skin once a week. On Sundays There are no discontinued medications. IMPRESSIONS/PLAN 1. Anginal equivalent - CT angiogram coronary arteries with or without scoring; Future - Echo complete W/O contrast; Future Patient with multiple risk factors including morbid obesity, hypertension, diabetes with episodes of chest pain. Will obtain echocardiogram rule out structural abnormality and CTA coronaries rule out significant epicardial disease. 2. Preoperative cardiovascular examination - Echo complete W/O contrast; Future Will be able to assess after above workup is complete. 3. Hypertension, unspecified type - Ambulatory referral to Cardiology (Non-[facility]) Continue current regimen. 4. Peripheral edema - Ambulatory referral to Cardiology (Non-[facility]) Leg elevation and compression therapy. TODAYS ORDERS Orders Placed This Encounter Procedures CT angiogram coronary arteries with or without scoring Echo complete W/O contrast FOLLOW UP Return in about 1 year (around 09/24/2024). PCP: No primary care provider on file. Referring Physician: Chay Shelton MD [address] [place] [address] CTA cors ordered during OV. Per AY, pt to take Lopressor 25 mg just 2 hours prior (no 12 hours prior). Pt given instruction sheet and v/u all instructions as relayed by RN. Paper order given to cath RN. [facility]24-[facility]23 Miscellaneous Notes Left message for patient to remind them to bring their most current medication list with them to their appointment. documented [facility] 09-24-2023 Telephone encounter Note Left message for patient to remind them to bring their most current medication list with them to their appointment. [facility] 11-11-2022 Note Chief Complaint consultation for anemia HPI Staff 52 year old male presents on consultation from Dr. Wright for anemia. Labs completed 10/27- HGB 13.3, HCT 40.5. Denies dizziness or lightheadedness. 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 Denies fatigue. Denies abdominal or rectal pain. No rectal bleeding or change in bowel habits. Denies nausea or vomiting. No unexplained weight loss. Never had colonoscopy in the past. No known family history of colon cancer. History of Present Illness 52 yo male with h/o DMII, hypertriglyceridemia, referred for mild anemia; denies change in bms or blood in stools, no abd complaints; no abdominal operations or endoscopies; on Diclofenac daily, no asa, no SBE prophylaxis; no fmhx of GI malignancy or IBD; no tobacco use. Review of Systems PHQ Score Initial Depression Screen Score: 0 ROS - Provider Constitutional: no fever, no sweats, no weight loss. Eyes: no glasses, no blurred vision, no visual loss. ENMT: no dentures, no hoarseness, no swallowing difficulties, no hearing loss, no ear infection(s), no nose bleeds. Cardiovascular: normal blood pressure, no chest pain, regular heartbeat, no heart murmur. Respiratory: no shortness of breath, no cough, no asthma, no wheezing. Gastrointestinal: no nausea, no vomiting, no diarrhea, no constipation, no blood in stool, no change in bowel habits, no abdominal pain, no hepatitis. Genitourinary: no kidney stones, no urine infection, no dysuria. Musculoskeletal: no pain, no weakness. Skin: no changing moles, no rash, no skin lumps. Neurologic: no seizures, no epilepsy, no headache. Psychiatric: no emotional or psychiatric problem. Heme/Lymph: no bleeding problems, no anemia, no blood clots, no transfusions. Allergy/Immunologic: no swollen lymph nodes/glands, no IV drug abuse. Other: Additional ROS info: Except as noted in the above Review of Systems and in the History of Present Illness, all other systems have been reviewed and are negative or noncontributory. Physical Exam Vitals & Measurements HR: 80(Peripheral) RR: 16 BP: 140/88 HT: 72 in HT: 182.8 cm WT: 200.5 kg WT: 441.1 lb BMI: 60 HEENT: normal conjunctiva, sclera clear, no scleral icterus, EOM intact, PERRLA, oral mucosa moist without lesions. Neck: trachea midline, no mass, symmetric, no thyromegaly or nodules, no adenopathy Respiratory: lungs CTA, respirations non labored. Cardiovascular: regular rate and rhythm, no murmur, no pedal edema or varicosities. Gastrointestinal: obese, soft, non distended, no tenderness, no masses, no palpable hernias, diastasis recti no, no hepatosplenomegaly; normal bs Lymphatic: no cervical adenopathy, no supraclavicular adenopathy Musculoskeletal: normal gait, digits and nails without infection, nodes, cyanosis, clubbing. Skin: no rashes, no lesions, no ulcers, no subcutaneous nodules, induration. Psychiatric/Neuro: oriented to time, place, person, judgement normal, affect appropriate for age, insight intact, no focal deficits. Tests: labs reviewed,, review of old records completed, Discussed surgical options, risks, and possible complications with patient. Assessment/Plan 1. Anemia (D64.9: Anemia, unspecified) plan EGD/colonoscopy with anesthesia for further evaluation, informed consent obtained. 2. BMI 60.0-69.9, adult (Z68.44: Body mass index [BMI] 60.0-69.9, adult) recommend diet and exercise. Follow-up No qualifying data available Problem List/Past Medical History Ongoing Anemia BMI 60.0-69.9, adult Diabetes Hypertriglyceridemia Morbid obesity Historical No qualifying data Procedure/Surgical History Vasectomy. Medications glimepiride 4 mg Tab, 4 mg= 1 tab(s), Oral, Daily lisinopril 10 mg Tab, 10 mg= 1 tab(s), Oral, Daily metformin 500 mg Tab, 500 mg= 1 tab(s), Oral, BID pioglitazone 15 mg Tab, 15 mg= 1 tab(s), Oral, Daily Allergies No Known Allergies No Known Medication Allergies Social History Alcohol Current, Liquor, 1-2 times per week, 11/11/2022 Substance Abuse - Denies Substance Abuse, 11/11/2022 Tobacco Former smoker, quit more than 30 days ago Tobacco Use:. Never Smokeless Tobacco Use:. Cigarettes, 0.20 per day. Started age 35.0 Years. Stopped age 45 Years., 11/11/2022 Family History Asthma: Mother. COPD: Mother. Diabetes mellitus type 2: Father, Sister and Brother. Liver cancer: Father. Immunizations Vaccine Date Status Comments influenza virus vaccine, inactivated - Not Given Patient Refuses SARS-CoV-2 (COVID-19) Ad26 vaccine 10/19/2020 Recorded 2022-11-06: TPV50 [facility] Comment on above: Result Comment: Elec tronically Signed By: DONNY SKINNER, Lissette Kim\Date and Time Signed: 11/11/22 16:31 EDT 06-29-2021 Evaluation note Encounter Date Diagnosis Assessment Notes Jun, Encounter for screening for other viral diseases (ICD-10 - Z11.59) Jun, Other Additional time spent conducting pre-visit phone call, screening for symptoms, instructions on social distancing, application and removal of PPE, and cleaning of examination room, equipment and supplies was preformed. Patient education given for testing methodology and results. Patient care instructions given in writting by [facility] At Home document. [address] Other Evaluation + Plan note No data available for this section [facility] [place] Evaluation noteNo InformationNort [employer] Other Evaluation note* Diagnosis Anginal equivalent- Primary Preoperative cardiovascular examination Pre-operative cardiovascular examination Hypertension, unspecified type Peripheral edema Edema documented in this encounter [facility] - Reported* Type Description Date Medical History Diabetic type II [address] Other Hospital Discharge instructions No data available for this section General Surgery [place] InstructionsNot on filedocumented in this encounter [facility] filedocumented in this [facility] System[facility]ructionsNot on filedocumented in this encounter [facility] No data available for this section General Surgery [place] Summary Purpose Family History No Family History Records FoundNo Family History Records FoundNo Family History Records Found Advance Directives No Advanced Directives Records FoundNo Advanced Directives Records FoundNo Advanced Directives Records Found Reason for Referral Specialty Diagnoses / Procedures Referred By Ciarra hunter Referred To Contact Diagnoses Preoperative cardiovascular examination Anginal equivalent Procedures Echo complete W/O contrast Jadyn Laird MD [address] [place] [address] Referral ID Status Reason Start Date Expiration Date V isits Requested Visits Authorized [id number] Pending Review 09/25/2023 09/24/2024 1 1 Specialty Diagnoses / Procedures Referred By Ciarra t Referred To Contact Radiology Diagnoses Anginal equivalent Procedures CT angiogram coronary arteries with or without scoring Jadyn Laird MD [address] [place] [address] Referral ID Status Reason Start Date Expiration Date V isits Requested Visits Authorized [id number] Pending Review 09/25/2023 09/24/2024 1 1 Additional Source Comments REASON FOR VISIT (unrecogniz ed section and content) Reason Comments New Patient [facility] [employer] [facility] REFERRAL FROM [facility]:Hypertension, unspecified type [I10]; Peripheral edema [R60.9], Pre op Clearance-never seen cardio-sched w pt Specialty Diagnoses / Procedures Referred By Ciarra hunter Referred To Contact Cardiology Diagnoses Hypertension, unspecified type Peripheral edema Chay Shelton MD [address] [facility] [address] [place] [address] Rom Yung, DO [address] [facility] [place] [address] Referral ID Status Reason Start Date Expiration Date Visits Requested Visits Authorized [id number] Pending Review Specialty Services Required 09/23/2023 09/22/2024 1 1 Patient Care team informatio n (unrecognized section and content) Personnel Name: Eladio Wright MD Address: Address: [address] [place] [address] [place] [address] [place] [address]- (unrecognized sect ion and content) No Status Records FoundNo Status Records FoundNo Status Records Found INFORMATION SOURCE (unrecogn ized section and content) DATE CREATED AUTHOR 11/26/2022 [facility] DATE CREATED AUTHOR AUTHOR'S ORGANIZ ATION 01/13/2023 [facility] DATE CREATED AUTHOR AUTHOR'S ORGANIZ ATION 11/10/2023 [facility] FOR RECORDS PERTAINING TO PATIENTS WHO ARE OR HAVE BEEN ENROLLED IN A CHEMICAL DEPENDENCY/SUBSTANCEABUSE PROGRAM, SOME INFORMATION MAY BE OMITTED. This clinical summary was aggregated from multiple sources. Caution should be exercised in using it in the provision of clinical care. This summary normalizes information from multiple sources, and as a consequence, information in this document may materially change the coding, format and clinical context of patient data. In addition, data may be omitted in some cases. CLINICAL DECISIONS SHOULD BE BASED ON THE PRIMARY CLINICAL RECORDS. [facility] [employer] provides no warranty or guarantee of the accuracy or completeness of information in this document.
== END 2024-02-23 07:02 | disposition home or self-care (01) ==
LOC: LAB 07:02
PROVIDERS: PCP Family Medicine
DX: K21.9 Gastro-esophageal reflux disease without esophagitis (principal); Z72.0 Tobacco use; E66.01 Morbid (severe) obesity due to excess calories; E11.9 Type 2 diabetes mellitus without complications; I10 Essential (primary) hypertension; G47.33 Obstructive sleep apnea (adult) (pediatric); E78.00 Pure hypercholesterolemia, unspecified; R60.1 Generalized edema
CPT/HCPCS: 36415; 80323

== ENCOUNTER 2024-06-01 08:05 | Outpatient (OUT) | payer OTHER, SELFPAY ==
--- NOTE | 2024-06-01 08:08 | VEIN_ITS ---
Patient Name: CELESTE ALEGRIA MR#: [id number] : 1970 Exam Date: 06/01/2024 Ordering Doctor: DR Minh Wright . RADIOLOGY REPORT PROCEDURE: VC EXT VENOUS REFLUX SCAR LMTD COMPARISON: None. INDICATIONS: Edema R60.0 TECHNIQUE: Duplex imaging of the lower extremity to assess the deep and superficial venous system for the presence of deep or superficial venous incompetence and to document the location and severity of disease. The study includes evaluation of the great saphenous vein (GSV), anterior accessory saphenous vein (AASV) and small saphenous vein (SSV). Patient scanned in reverse Trendelenburg and standing. FINDINGS: RIGHT LOWER EXTREMITY: Saphenofemoral Junction Reflux: Yes 8.8mm 0.5 sec GSV: Diam (mm) Reflux/ Time (sec) Proximal Thigh 7.8 Yes 0.8 Mid Thigh 6.4 Yes 0.5 Distal Thigh 6.4 No Prox Calf 5.0 Yes 0.7 Mid Calf 4.6 Yes 3.9 Saphenopopliteal Junction Reflux: 3.4mm No SSV: Proximal Calf 4.4 Yes 0.5 Mid Calf 3.2 No AASV: Not present Thrombi: No acute or chronic thrombus. Compressibility: Normal. Flow: Minimal deep venous reflux. Preforator: Mid medial lower leg 4.1 mm with 1.9s reflux. Tech Note: Incompetent varicose vein mid medial lower leg measures 4.4 mm with 0.5s reflux. Varicose vein medial knee measures 5.2 mm with 2.0s reflux. LEFT LOWER EXTREMITY: Saphenofemoral Junction Reflux: Yes 8.0 mm 0.5 sec GSV: Diam (mm) Reflux/Time (sec) Proximal Thigh 9.1 Yes 0.5 Mid Thigh 6.7 Yes 0.9 Distal Thigh 6.1 No Prox Calf 4.8 Yes 0.5 Mid Calf 5.3 Yes 0.5 Saphenopopliteal Junction Relux: 5.8 mm Yes 0.6 SSV: Proximal Calf 6.0 Yes 0.7 Mid Calf 5.0 Yes 0.5 AASV: Proximal Thigh 5.5 No Mid Thigh 4.0 No Distal Thigh Thrombi: No acute or chronic thrombus. Compressibility: Normal. Flow: Minimal deep venous reflux. [employer] Site [employer]st: Distal medial lower leg 6.0 mm with 3.7s reflux. Tech Note: Incompetent varicose vein proximal medial calf measures 4.7 mm with 0.5s reflux. Varicose vein mid medial lower leg measures 4.0 mm with 0.6s reflux. CONCLUSION: 1. Mild to severe right great saphenous vein venous insufficiency with dilatation and saphenofemoral junction reflux 2. Mild left great saphenous vein venous insufficiency with dilatation and saphenofemoral junction reflux 3. Mild bilateral small saphenous vein venous insufficiency with saphenopopliteal junction reflux 4. Bilateral incompetent varicose veins measuring up to 5.2 mm Dictated by: Jack Vanegas MD on 06/01/2024 at 09:32 Approved by: Jack Vanegas MD on 06/01/2024 at 09:34
--- OUTSIDE RECORDS SUMMARY | 2024-06-01 08:14 | XMS_ITS | CCD ---
Author Organization [facility] Care Team Providers Care Chemical Worker Name Role Phone Eladio Wright Unavailable Susanna Clark Unavailable Eladio Wright Primary Care Physician [phone] MCLAUGHLIN Admitting Unavailable NILL [...] Medication Allergies] Propensity to adverse reactions (disorder) [facility] Repository Medications Current Medications Medication Drug [...] Kauffman MD on 11/09/2023 2:27 PM Normal [facility] Creatinine (Bld) [Mass/Vol]o n 11-05-2023 Creatinine [Mass/Vol] 0.6 mg/dL Low 0.7-1.2 [facility] Comment on above: Result Comment: METH OD TRACEABLE TO IDMS STANDARD Performed By: #### 3 8483-4 #### [facility] ([id number]) [address] [place] [address] eGFR (CKD-EPI) NON-RACE DEPENDENT >90 Normal >59 [facility] Comment on above: Result Comment: Reported eGFR is based on the CKD-EPI 2020 equation that does not use a race coefficient. Performed By: #### 3 8483-4 #### [facility] ([id number]) [place] [address] Reminderson 01-12-2023 Reminders - From: Bessie Wasserman LPN To: GSN - Clinical; Sent: 01/12/2023 16:11:25 EDT Show up: 12/01/2027 07:00:00 EDT Subject: colonoscopy recall Due Date/Time: 01/01/2028 07:00:00 EDT Reminder/Recall Patient due for surveillance colonoscopy 01/01/2028 due to history of tubular adenoma. Normal [facility] Pathology Noteon 01-06-2023 Pathology Note [id number]#1.00CD :127 Normal [facility] Outside Colonoscopyon 2022 Outside Colonoscopy [id number]#1.00CD :127 [facility] Lab Reportson 12-31-2022 Lab Reports [id number]#1.00C D:127 [facility] Pre-Certification Formon Pre-Certification Form [id number]#1.00 CD:127 [facility] Consent for Procedure/Surger yon 11-13-2022 Consent for Procedure/Surgery [id number]#1.00C D:127 [facility] Facesheeton 11-13-2022 Facesheet [id number]#1.00C D:127 [facility] Ambulatory Visit Summaryon 0 11-11-2022 Ambulatory Visit [...] 60.0-69.9, adult Diabetes Hypertriglyceridemia Morbid obesity Normal [facility] Physician Referralon 023 Physician Referral [id number]#1.00C D:127 Normal [facility] CBC AUTO DIFFon 10-27-2022 BASO # 0.1 103/ul Normal 0.0-0.1 [facility] Comment on above: Performed By: #### C BC #### [facility] [address] [address] [address] Azam Camilo Basophils/100 WBC (Bld) 0.5 % Normal 0.2-2.0 [facility] Comment on above: Performed By: #### C BC #### [facility] [address] [address] [address] Azam Camilo EO # 0.1 103/ul Normal 0.0-0.7 [facility] Comment on above: Performed By: #### C BC #### [facility] [address] [place] [address] Dr. Azam Camilo Eosinophils/100 WBC (Bld) 1.0 % Normal 0.9-7.0 [facility] Comment on above: Performed By: #### C BC #### [facility] [address] [place] [address] Dr. Azam Camilo Erythrocyte distribution width (RBC) [Ratio] 14.6 % Normal 11.0-15.0 [facility] Comment on above: Performed By: #### C BC #### [facility] [address] [place] [address] Dr. Azam Camilo Hematocrit (Bld) [Volume fraction] 40.5 % Critically low 42.0-54.0 [facility] Comment on above: Performed By: #### C BC #### [facility] [address] [place] [address] Dr. Azam Camilo Hemoglobin (Bld) [Mass/Vol] 13.3 g/dL Critically low 14.0-18.0 [facility] Comment on above: Performed By: #### C BC #### [facility] [address] [place] [address] Dr. Azam Camilo IG # 0.03 10e3/ul Normal 0.00-0.03 [facility] Comment on above: Performed By: #### C BC #### [facility] [address] [place] [address] Dr. Azam Camilo IG % 0.3 % Normal 0.0-0.5 [facility] Comment on above: Performed By: #### C BC #### [facility] [address] [place] [address] Dr. Azam Camilo LYMPH # 3.3 103/ul Normal 1.2-3.8 [facility] Comment on above: Performed By: #### C BC #### [facility] [address] [place] [address] Dr. Azam Camilo Lymphocytes/100 WBC (Bld) 32.9 % Normal 20.5-60.0 [facility] Comment on above: Performed By: #### C BC #### [facility] [address] [place] [address] Dr. Azam Camilo MANUAL DIFF REQ NO Normal [facility] Comment on above: Performed By: #### C BC #### [facility] [address] [place] [address] Dr. Azam Camilo MCH (RBC) [Entitic mass] 28.2 pg Normal 25.9-34.0 [facility] Comment on above: Performed By: #### C BC #### [facility] [address] [place] [address] Dr. Azam Camilo MCHC (RBC) [Mass/Vol] 32.8 g/dL Normal 29.9-35.2 [facility] Comment on above: Performed By: #### C BC #### [facility] [address] [place] [address] Dr. Azam Camilo MCV (RBC) [Entitic vol] 85.8 fL Normal 80.0-94.0 [facility] Comment on above: Performed By: #### C BC #### [facility] [address] [place] [address] Dr. Azam Camilo MONO # 0.6 103/ul Normal 0.3-0.8 [facility] Comment on above: Performed By: #### C BC #### [facility] [address] [place] [address] Dr. Azam Camilo Monocytes/100 WBC (Bld) 6.4 % Normal 1.7-12.0 [facility] Comment on above: Performed By: #### C BC #### [facility] [address] [place] [address] Dr. Azam Camilo NEUT # 5.9 103/ul Normal 1.4-6.5 [facility] Comment on above: Performed By: #### C BC #### [facility] [address] [place] [address] Dr. Azam Camilo Neutrophils/100 WBC (Bld) 58.9 % Normal 43.0-75.0 [facility] Comment on above: Performed By: #### C BC #### [facility] [address] [address] [address] Azam Camilo Platelet mean volume (Bld) [Entitic vol] 10.7 fL Normal 9.5-13.5 [facility] Comment on above: Performed By: #### C BC #### [facility] [address] [place] [address] Dr. Azam Camilo PLT 226 103/ul Normal 150-450 [facility] Comment on above: Performed By: #### C BC #### [facility] [address] [address] [address] Azam Camilo RBC 4.72 106/ul Normal 4.70-6.10 [facility] Comment on above: Performed By: #### C BC #### [facility] [address] [address] [address] Azam Camilo WBC 10.1 103/ul Normal 4.0-11.0 [facility] Comment on above: Performed By: #### C BC #### [facility] [address] [place] [address] Dr. Azam Camilo FREE T3on 10-27-2022 FREE T3 3.26 pg/mlL Normal 2.18-3.98 [facility] Comment on above: Performed By: #### T SH, LIPID, BMP, FT3, LIVER, T4 #### [facility] [address] [place] [address] Dr. Azam Camilo GLYCOHEMOGLOBIN A1Con 2022 ADA RECOMMENDATION SEE BELOW Normal [facility] Comment on above: Result Comment: ADA RECOMMENDED LIMIT 4.0 - 6.0 ADA THERAPEUTIC TARGET < 7.0 ACTION SUGGESTED > 7.0 Performed By: #### A 1C #### [facility] [address] [place] [address] Dr. Azam Camilo Glucose [Mass/Vol] 146 mg/dL Normal [facility] Comment on above: Performed By: #### A 1C #### [facility] [address] [place] [address] Dr. Azam Camilo HbA1c (Bld) [Mass fraction] 6.7 % Critically high 4.5-6.2 [facility] Comment on above: Performed By: #### A 1C #### [facility] [address] [address] [address] Azam Camilo LIPID PROFILEon 10-27-2022 CHOL-HDL RATIO NORM SEE BELOW Normal [facility] Comment on above: Result Comment: 3.3 - 4.4 LOW RISK 4.4 - 7.1 AVERAGE RISK 7.1 - 11.0 MODERATE RISK >11.0 HIGH RISK Performed By: #### T SH, LIPID, BMP, FT3, LIVER, T4 #### [facility] [address] [address] [address] Azam Camilo Cholesterol [Mass/Vol] 136 mg/dL Normal <=200 [facility] Comment on above: Performed By: #### T SH, LIPID, BMP, FT3, LIVER, T4 #### [facility] [address] [address] [address] Azam Camilo Cholesterol in HDL [Mass/Vol] 31 mg/dL Critically low 40-60 [facility] Comment on above: Performed By: #### T SH, LIPID, BMP, FT3, LIVER, T4 #### [facility] [address] [address] [address] Azam Camilo Cholesterol in LDL [Mass/Vol] 81.2 mg/dL Normal [facility] Comment on above: Performed By: #### T SH, LIPID, BMP, FT3, LIVER, T4 #### [facility] [address] [address] [address] Azam Camilo Cholesterol.total/C holesterol in HDL [Mass ratio] 4.4 {ratio} Normal [facility] Comment on above: Performed By: #### T SH, LIPID, BMP, FT3, LIVER, T4 #### [facility] [address] [address] [address] Azam Camilo HDL NORMAL > or = 60 mg/dl - LO W CARDIOVASCULAR RISK <40 mg/dl - HIGH CARDIOVASCULAR RISK Normal [facility] Comment on above: Performed By: #### T SH, LIPID, BMP, FT3, LIVER, T4 #### [facility] [address] [address] [address] Azam Camilo LDL CALC NORMAL SEE BELOW Normal [facility] Comment on above: Result Comment: <100 mg/dl OPTIMAL 100 - 129 mg/dl NEAR OR ABOVE OPTIMAL 130 - 159 mg/dl BORDERLINE HIGH 160 - 189 mg/dl HIGH >190 mg/dl VERY HIGH Performed By: #### T SH, LIPID, BMP, FT3, LIVER, T4 #### [facility] [address] [address] [address] Azam Camilo Triglyceride [Mass/Vol] 119 mg/dL Normal <=150 [facility] Comment on above: Performed By: #### T SH, LIPID, BMP, FT3, LIVER, T4 #### [facility] [address] [address] [address] Azam Camilo VLDL CALC 23.8 mg/dL Normal [facility] Comment on above: Performed By: #### T SH, LIPID, BMP, FT3, LIVER, T4 #### [facility] [address] [address] [address] Azam Camilo LIVER PROFILEon 10-27-2022 Albumin [Mass/Vol] 3.6 g/dL Normal 3.4-5.0 [facility] Comment on above: Performed By: #### T SH, LIPID, BMP, FT3, LIVER, T4 #### [facility] [address] [address] [address] Azam Camilo Albumin/Globulin [Mass ratio] 0.9 {ratio} Normal [facility] Comment on above: Performed By: #### T SH, LIPID, BMP, FT3, LIVER, T4 #### [facility] [address] [address] [address] Azam Camilo ALP [Catalytic activity/Vol] 103 U/L Normal 46-116 [facility] Comment on above: Performed By: #### T SH, LIPID, BMP, FT3, LIVER, T4 #### [facility] [address] [place] [address] Dr. Azam Camilo ALT [Catalytic activity/Vol] 39 U/L Normal 16-63 [facility] Comment on above: Performed By: #### T SH, LIPID, BMP, FT3, LIVER, T4 #### [facility] [address] [address] [address] Azam Camilo AST [Catalytic activity/Vol] 14 U/L Critically low 15-37 [facility] Comment on above: Performed By: #### T SH, LIPID, BMP, FT3, LIVER, T4 #### [facility] [address] [place] [address] Dr. Azam Camilo BILI, CONJUGATED 0.1 mg/dL Normal 0.0-0.2 [facility] Comment on above: Performed By: #### T SH, LIPID, BMP, FT3, LIVER, T4 #### [facility] [address] [address] [address] Azam Camilo Bilirubin [Mass/Vol] 0.3 mg/dL Normal 0.2-1.0 [facility] Comment on above: Performed By: #### T SH, LIPID, BMP, FT3, LIVER, T4 #### [facility] [address] [place] [address] Dr. Azam Camilo Globulin (S) [Mass/Vol] 4.1 g/dL Normal [facility] Comment on above: Performed By: #### T SH, LIPID, BMP, FT3, LIVER, T4 #### [facility] [address] [place] [address] Dr. Azam Camilo Protein [Mass/Vol] 7.7 g/dL Normal 6.4-8.2 [facility] Comment on above: Performed By: #### T SH, LIPID, BMP, FT3, LIVER, T4 #### [facility] [address] [place] [address] Dr. Azam Camilo PROF CHEM 8 (BAS METB)on Anion gap [Moles/Vol] 11.1 mmol/L Normal [facility] Comment on above: Performed By: #### T SH, LIPID, BMP, FT3, LIVER, T4 #### [facility] [address] [place] [address] Dr. Azam Camilo Calcium [Mass/Vol] 8.6 mg/dL Normal 8.5-10.1 [facility] Comment on above: Performed By: #### T SH, LIPID, BMP, FT3, LIVER, T4 #### [facility] [address] [address] [address] Azam Camilo Chloride [Moles/Vol] 104 mmol/L Normal 98-107 [facility] Comment on above: Performed By: #### T SH, LIPID, BMP, FT3, LIVER, T4 #### [facility] [address] [address] [address] Azam Camilo CO2 [Moles/Vol] 27.9 mmol/L Normal 21.0-32.0 [facility] Comment on above: Performed By: #### T SH, LIPID, BMP, FT3, LIVER, T4 #### [facility] [address] [address] [address] Azam Camilo Creatinine [Mass/Vol] 0.93 mg/dL Normal 0.70-1.30 [facility] Comment on above: Performed By: #### T SH, LIPID, BMP, FT3, LIVER, T4 #### [facility] [address] [place] [address] Dr. Azam Camilo EGFR-AF LUXEMBOURGER >60 Normal >=60 [facility] Comment on above: Performed By: #### T SH, LIPID, BMP, FT3, LIVER, T4 #### [facility] [address] [place] [address] Dr. Azam Camilo EGFR-NON AF LUXEMBOURGER >60 Normal >=60 [facility] Comment on above: Performed By: #### T SH, LIPID, BMP, FT3, LIVER, T4 #### [facility] [address] [place] [address] Dr. Azam Camilo Glucose [Mass/Vol] 133 mg/dL Critically high 74-106 [facility] Comment on above: Performed By: #### T SH, LIPID, BMP, FT3, LIVER, T4 #### [facility] [address] [place] [address] Dr. Azam Camilo Potassium [Moles/Vol] 4.0 mmol/L Normal 3.5-5.1 [facility] Comment on above: Performed By: #### T SH, LIPID, BMP, FT3, LIVER, T4 #### [facility] [address] [address] [address] Azam Camilo Sodium [Moles/Vol] 139 mmol/L Normal 136-145 [facility] Comment on above: Performed By: #### T SH, LIPID, BMP, FT3, LIVER, T4 #### [facility] [address] [address] [address] Azam Camilo Urea nitrogen [Mass/Vol] 15.0 mg/dL Normal 7.0-18.0 [facility] Comment on above: Performed By: #### T SH, LIPID, BMP, FT3, LIVER, T4 #### [facility] [address] [place] [address] Dr. Azam Camilo Urea nitrogen/Creatinine [Mass ratio] 16.1 mg/mg Normal [facility] Comment on above: Performed By: #### T SH, LIPID, BMP, FT3, LIVER, T4 #### [facility] [address] [address] [address] Azam Camilo T4on 10-27-2022 T4 [Mass/Vol] 7.80 ug/dL Normal 4.50-12.10 [facility] Comment on above: Performed By: #### T SH, LIPID, BMP, FT3, LIVER, T4 #### [facility] [address] [place] [address] Dr. Azam Camilo TSHon 10-27-2022 TSH 1.244 uIU/mL Normal 0.358-3.740 [facility] Comment on above: Performed By: #### T SH, LIPID, BMP, FT3, LIVER, T4 #### [facility] [address] [place] [address] Dr. Azam Camilo COVID Quick Testingon 2020 Result Negative [employer] Other Vital Signs Date Time Vital Sign Value Performing Clinician Ed mann 09-25-2023 09:22-0400 Body height 177.8 cm Jadyn Laird MD Work Phone: [employer] 09-25-2023 09:22-0400 Body mass index (BMI) [Ratio] 59.83 kg/m2 Jadyn Laird MD Work Phone: [facility] 09-25-2023 09:22-0400 Body weight 189.15 kg Jadyn Laird MD Work Phone: [facility] 09-25-2023 09:22-0400 Diastolic blood pressure 80 mm[Hg] Jadyn Laird MD Work Phone: [facility] 09-25-2023 09:22-0400 Heart rate 72 /min Jadyn Laird MD Work Phone: [facility] 09-25-2023 09:22-0400 SaO2% (BldA) [Mass fraction] 97 % Jadyn Laird MD Work Phone: [facility] 09-25-2023 09:22-0400 Systolic blood pressure 142 mm[Hg] Jadyn Laird MD Work Phone: [facility] 11-11-2022 14:18-0400 Blood Pressure Location Lissette HINES [facility] [place] 11-11-2022 14:18-0400 Diastolic blood pressure 88 mm[Hg] Lissette PALOMOL [facility] [place] 11-11-2022 14:18-0400 Heart rate 80 /min Lissette HINES [facility] [place] 11-11-2022 14:18-0400 Respiratory rate 16 /min Lissette NILL [facility] [place] 11-11-2022 14:18-0400 Systolic blood pressure 140 mm[Hg] Lissette HINES [facility] [place] Encounters Encounter Date Encounter Type Care Provider Facility Start: 11-09-2023 End: 11-10-2023 ambulatory JADYN LAIRD [facility] Start: 11-05-2023 End: 11-06-2023 ambulatory JADYN LAIRD [facility] Start: 09-25-2023 End: 09-[facility] [facility] Start: 09-25-2023 [facility]ced[facility] cardiovascular [facility] Start: 09-25-2023 End: 09-25-2023 Office outpatient new 45 minutes Jadyn Laird MD Work Phone: [facility] Comment on above: Anginal equivalent ( Primary Dx); Preoperative cardiovascular examination; Hypertension, unspecified type; Peripheral edema Start: 09-25-2023 End: 09-25-2023 Patient encounter status Jadyn Laird MD Work Phone: [facility] Start: 09-24-2023 Telephone encounter Roxanna Henson LPN [facility] Start: 09-23-2023 Chart abstracting Scanning Pro vider External [facility] Start: 01-06-2023 ambulatory Lissette HINES Facility :[facility] Start: 12-31-2022 End: 01-01-2023 ambulatory Lissette HINES Facility:CD:[id number] Start: 12-03-[address] LISSETTE HINES . Facil ity:[facility] Start: 11-11-2022 End: 11-12-2022 ambulatory Lissette HINES Facility:[facility] Start: 11-11-2022 End: 11-11-2022 Patient encounter procedure Lissette HINES [facility] [place] Start: 11-02-2022 Encounter for genera l adult medical examination without abnormal findings DR ELADIO WRIGHT . [facility] Start: 10-28-2022 ambulatory Lissette HINES Facility:[facility] [place] Start: 10-27-2022 End: 10-28-[address] ELADIO WRIGHT . Facility:[facility] Start: 10-27-2022 End: 10-28-2022 Encounter for general adult medical examination without abnormal findings DR ELADIO WRIGHT . Facility:[facility] Start: 06-29-2021 End: 06-29-2021 ambulatory Eladio Wright Other [employer] Other Start: 06-29-2021 Encounter by annabella Hendricks [facility] Start: 06-29-2021 Office outpatient vi sit 5 minutes Susanna Clark [facility] Procedures Date Procedure Procedure Detail Performing Clinician Start: 10-27-[address] BOB HINES . Comment on above: Performed By: #### P [facility] #### [facility] [address] [place] [address] Dr. Azam Camilo Vasectomy Lissette HINES Plan of Treatment Date Care Activity Detail Author Start: 09-24-2024 Adult BMI Screening Adult BMI Screening [facility] Start: 11-09-2023 End: 11-09-2023 Patient encounter procedure 11/09/2023 3:15 PM EDT Appointment [facility] [address] [place] [address] [facility] Start: 09-25-2023 End: 09-24-2024 CTA Heart and Coronary arteries WO and W contrast IV CT angiogram coronary arteries with or without scoring Imaging Routine Anginal equivalent Expected: 09/25/2023, Expires: 09/24/2024 [employer] Work Phone: Comment on above: Expected: 09/25/2023, Expires: Start: 09-25-2023 End: 09-24-2024 Echo complete W/O contrast Echo complete W/O contrast Echocardiography Routine Preoperative cardiovascular examination Anginal equivalent Expected: 09/25/2023, Expires: 09/24/2024 [employer] Comment on above: Expected: 09/25/2023, Expires: Start: 09-25-2023 End: 09-25-2023 Patient encounter procedure 09/25/2023 9:00 AM EDT Office Visit [facility] [address] [place] [address] Jadyn Laird MD [address] [place] [address] [facility] Start: 03-13-2023 COVID-19 Vaccine ( season) COVID-19 Vaccine ( season) [facility] Start: 03-13-2023 Influenza vaccination Influenza Vaccine [facility] Start: 2020 Administration of varicella zoster vaccine Zoster (Shingles) Vaccine (1 of 2) [facility] Start: 1989 DTaP,Tdap and Td Vaccines (1 - Tdap) DTaP,Tdap and Td Vaccines (1 - Tdap) [facility] Start: 1988 Adult BMI Follow Up Plan Adult BMI Follow Up Plan [facility] Start: 1988 Adult BMI Screening Adult BMI Screening [facility] Start: 1982 Depression Screening Depression Screening [facility] Start: 1982 Tobacco Screening Tobacco Screening [facility] Start: 1970 Tobacco Counseling Tobacco Counseling [facility] Immunizations Immunization Date Immunization Notes Care Provider Fa cility 10-19-2020 SARS-CoV-2 (COVID-19 ) Ad26 vaccine, recombinant Lissette HINES [facility] Comment on above: Result Comment: 2022: TPV50 NEGATED: Highlighted row has not occurred!11-11-2022 influenza virus vaccine, unspecified formulation Lissette HINES [facility] Payers Date Payer Category Payer Private Health Insurance [facility] PLUS [id number] 2022-Present [phone] [address] [address] [place] [address] [id number] 1970 Unknown [id number] 2.16.840.1.205055.3.579. 2.593 1970 Unknown [id number] 2.16.840.1.252588.3.579. 2.593 1970 Unknown [id number] 2.16.840.1.413731.3.579. 2.727 1970 Unknown [id number] 2.16.840.1.815650.3.579. 2.727 1970 Unknown [id number] 2.16.840.1.319367.3.579. 2.727 1970 Unknown [id number] 2.16.840.1.806740.3.579. 2.1286 1970 Unknown [id number] 2.16.840.1.227004.3.579. 2.1286 1970 Unknown [id number] 2.16.840.1.680417.3.579. 2.1286 1959 Unknown [id number] Unknown [id number] 2.16.840.1.770307.19 Social History Date Type Detail Facility Start: 12-22-2018 End: 09-25-2023 Sex Assigned At [facility] Start: 11-11-2022 Tobacco smoking status Ex-smoker (finding) [facility] Tobacco smoking status Never [facility] [place] Tobacco smoking status [facility] Tobacco smoking consumption unknown [facility] Start: 12-22-2018 End: 09-25-2023 History of Social function [facility] Start: 1970 Sex Assigned At Not on file P [facility] Start: 09-25-2023 Tobacco smoking status ARIS Occasional tobacco smoker [facility] History of tobacco use Cigarette Smoker [facility] Functional Status Date Assessment Result Facility 11-11-2022 Functional Status N/A [facility] Clinical Notes 06-29-2021 to 09-25-2023 Jadyn Laird [...] Chief Complaint 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 Referring Physician: Chay Shelton MD [address] [place] [address] CTA cors ordered during OV. Per AY, pt to take Lopressor 25 mg just 2 hours prior (no 12 hours prior). Pt given instruction sheet and v/u all instructions as relayed by RN. Paper order given to cath RN. [facility]-24-2023 Miscellaneous Notes Left message for patient to remind them to bring their most current medication list with them to their appointment. documented [facility] this [facility] 09-24-2023 Telephone encounter Note Left message for patient to remind them to bring their most current medication list with them to their appointment. [facility] 11-11-2022 Note Chief Complaint consultation for anemia [...] (COVID-19) Ad26 vaccine 10/19/2020 Recorded 2022-11-06: TPV50 [facility] Comment on above: Result Comment: Elec [...] Patient care instructions given in writting by [facility] Care At Home document. [employer] Other Evaluation + Plan note No data available for this section [facility] [place] Evaluation noteNo InformationNort Chroma Other Evaluation note* Diagnosis Anginal equivalent- Primary Preoperative cardiovascular examination Pre-operative cardiovascular examination Hypertension, unspecified type Peripheral edema Edema documented [facility] this [facility] - Reported* Type Description Date Medical History Diabetic type II [facility] Other Hospital Discharge instructions No data available for this section [facility] [place] InstructionsNot on filedocumented in this encounter [facility] filedocumented in this encounter [facility] System[facility]ructionsNot on filedocumented in this encounter [facility] [...] Laird MD [address] [place] [address] Referral ID Status Reason Start Date Expiration Date V isits Requested Visits Authorized [id number] Pending Review 09/25/2023 09/24/2024 1 1 Specialty Diagnoses / Procedures Referred By Ciarra t Referred To Contact Radiology Diagnoses Anginal equivalent Procedures CT angiogram coronary arteries with or without scoring Jadyn Laird MD [address] [place] [address] Referral ID Status Reason Start Date Expiration Date V isits Requested Visits Authorized [id number] Pending Review 09/25/2023 09/24/2024 1 1 Additional Source Comments REASON FOR VISIT (unrecogniz ed section and content) Reason Comments 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[facility]:Hypertension, unspecified type [I10]; Peripheral edema [R60.9], Pre op Clearance-never seen cardio-sched w pt Specialty Diagnoses / Procedures Referred By Ciarra hunter Referred To Contact Cardiology Diagnoses Hypertension, unspecified type Peripheral edema Chay Shelton MD [address] [place] [address] Rom Yung, DO [address] [place] [address] Referral ID Status Reason Start Date Expiration Date Visits Requested Visits Authorized [id number] Pending Review Specialty Services Required 09/23/2023 09/22/2024 1 1 Patient Care team informatio n (unrecognized section and content) Personnel Name: Eladio Wright MD Address: Address: [address] [place] [address] [address] [address] [place] [address]- (unrecognized sect ion and content) No Status Records FoundNo Status Records FoundNo Status Records Found INFORMATION SOURCE (unrecogn ized section and content) DATE CREATED AUTHOR 11/26/2022 [facility] DATE CREATED AUTHOR AUTHOR'S ORGANIZ ATION 01/13/2023 [facility] DATE CREATED AUTHOR AUTHOR'S ORGANIZ ATION 11/10/2023 [facility] FOR RECORDS PERTAINING TO PATIENTS WHO ARE [...] BE BASED ON THE PRIMARY CLINICAL RECORDS. [facility] [employer] provides no warranty or guarantee of the accuracy or completeness of information in this document.
== END 2024-06-01 08:06 | disposition home or self-care (01) ==
LOC: VC 08:06
PROVIDERS: PCP Family Medicine; Visit Provider Family Medicine
DX: R60.0 Localized edema (principal)
CPT/HCPCS: 93970

== ENCOUNTER 2024-07-12 12:05 | Outpatient (OUT) | payer OTHER, SELFPAY ==
--- OUTSIDE RECORDS SUMMARY | 2024-07-12 12:28 | XMS_ITS | CCD ---
Author Organization [facility] Care Team Providers Care Warehouseman Name Role Phone Eladio Wright Unavailable Susanna [...] Medication Allergies] Propensity to adverse reactions (disorder) [facility] Repository Medications Current Medications Medication Drug [...] Kauffman MD on 11/09/2023 2:27 PM Normal [facility] Creatinine (Bld) [Mass/Vol]o n 11-05-2023 Creatinine [Mass/Vol] 0.6 mg/dL Low 0.7-1.2 [facility] Comment on above: Result Comment: METH OD TRACEABLE TO IDMS STANDARD Performed By: #### 3 8483-4 #### [facility] ([id number]) [address] [place] [address] eGFR (CKD-EPI) NON-RACE DEPENDENT >90 Normal >59 [facility] Comment on above: Result Comment: Reported eGFR is based on the CKD-EPI 2020 equation that does not use a race coefficient. Performed By: #### 3 8483-4 #### [facility] ([id number]) [place] [address] Reminderson 01-12-2023 Reminders - From: Bessie Wasserman LPN To: GSN - Clinical; Sent: 01/12/2023 16:11:25 EDT Show up: 12/01/2027 07:00:00 EDT Subject: colonoscopy recall Due Date/Time: 01/01/2028 07:00:00 EDT Reminder/Recall Patient due for surveillance colonoscopy 01/01/2028 due to history of tubular adenoma. Normal [facility] Pathology Noteon 01-06-2023 Pathology Note [id number]#1.00CD :127 Normal [facility] Outside Colonoscopyon 2022 Outside Colonoscopy [id number]#1.00CD :127 [facility] Lab Reportson 12-31-2022 Lab Reports [id number]#1.00C D:127 [facility] Pre-Certification Formon Pre-Certification Form [id number] CD:127 [facility] Consent for Procedure/Surger yon 11-13-2022 Consent for Procedure/Surgery [id number]#1.00C D:127 [facility] Facesheeton 11-13-2022 Facesheet [id number]#1.00C D:127 [facility] Ambulatory Visit Summaryon 0 11-11-2022 Ambulatory Visit [...] 60.0-69.9, adult Diabetes Hypertriglyceridemia Morbid obesity Normal [facility] Physician Referralon 023 Physician Referral [id number] D:127 Normal [facility] CBC AUTO DIFFon 10-27-2022 BASO # 0.1 103/ul Normal 0.0-0.1 [facility] Comment on above: Performed By: #### C BC #### [facility] [address] [address] [address] Azam Camilo Basophils/100 WBC (Bld) 0.5 % Normal 0.2-2.0 [facility] Comment on above: Performed By: #### C BC #### [facility] [address] [address] [address] Azam Camilo EO # 0.1 103/ul Normal 0.0-0.7 [facility] Comment on above: Performed By: #### C BC #### [facility] [address] [place] [address] Dr. Azam Camilo Eosinophils/100 WBC (Bld) 1.0 % Normal 0.9-7.0 [facility] Comment on above: Performed By: #### C BC #### [facility] [address] [place] [address] Dr. Azam Camilo Erythrocyte distribution width (RBC) [Ratio] 14.6 % Normal 11.0-15.0 [facility] Comment on above: Performed By: #### C BC #### [facility] [address] [place] [address] Dr. Azam Camilo Hematocrit (Bld) [Volume fraction] 40.5 % Critically low 42.0-54.0 [facility] Comment on above: Performed By: #### C BC #### [facility] [address] [place] [address] Dr. Azam Camilo Hemoglobin (Bld) [Mass/Vol] 13.3 g/dL Critically low 14.0-18.0 [facility] Comment on above: Performed By: #### C BC #### [facility] [address] [place] [address] Dr. Azam Camilo IG # 0.03 10e3/ul Normal 0.00-0.03 [facility] Comment on above: Performed By: #### C BC #### [facility] [address] [place] [address] Dr. Azam Camilo IG % 0.3 % Normal 0.0-0.5 [facility] Comment on above: Performed By: #### C BC #### [facility] [address] [place] [address] Dr. Azam Camilo LYMPH # 3.3 103/ul Normal 1.2-3.8 [facility] Comment on above: Performed By: #### C BC #### [facility] [address] [place] [address] Dr. Azam Camilo Lymphocytes/100 WBC (Bld) 32.9 % Normal 20.5-60.0 [facility] Comment on above: Performed By: #### C BC #### [facility] [address] [place] [address] Dr. Azam Camilo MANUAL DIFF REQ NO Normal The [facility] Comment on above: Performed By: #### C BC #### [facility] [address] [place] [address] Dr. Azam Camilo MCH (RBC) [Entitic mass] 28.2 pg Normal 25.9-34.0 [facility] Comment on above: Performed By: #### C BC #### [facility] [address] [place] [address] Dr. Azam Camilo MCHC (RBC) [Mass/Vol] 32.8 g/dL Normal 29.9-35.2 [facility] Comment on above: Performed By: #### C BC #### [facility] [address] [place] [address] Dr. Azam Camilo MCV (RBC) [Entitic vol] 85.8 fL Normal 80.0-94.0 [facility] Comment on above: Performed By: #### C BC #### [facility] [address] [place] [address] Dr. Azam Camilo MONO # 0.6 103/ul Normal 0.3-0.8 [facility] Comment on above: Performed By: #### C BC #### [facility] [address] [place] [address] Dr. Azam Camilo Monocytes/100 WBC (Bld) 6.4 % Normal 1.7-12.0 [facility] Comment on above: Performed By: #### C BC #### [facility] [address] [place] [address] Dr. Azam Camilo NEUT # 5.9 103/ul Normal 1.4-6.5 [facility] Comment on above: Performed By: #### C BC #### [facility] [address] [place] [address] Dr. Azam Camilo Neutrophils/100 WBC (Bld) 58.9 % Normal 43.0-75.0 [facility] Comment on above: Performed By: #### C BC #### [facility] [address] [address] [address] Azam Camilo Platelet mean volume (Bld) [Entitic vol] 10.7 fL Normal 9.5-13.5 [facility] Comment on above: Performed By: #### C BC #### [facility] [address] [place] [address] Dr. Azam Camilo PLT 226 103/ul Normal 150-450 [facility] Comment on above: Performed By: #### C BC #### [facility] [address] [address] [address] Azam Camilo RBC 4.72 106/ul Normal 4.70-6.10 [facility] Comment on above: Performed By: #### C BC #### [facility] [address] [address] [address] Azam Camilo WBC 10.1 103/ul Normal 4.0-11.0 [facility] Comment on above: Performed By: #### C BC #### [facility] [address] [place] [address] Dr. Azam Camilo FREE T3on 10-27-2022 FREE T3 3.26 pg/mlL Normal 2.18-3.98 [facility] Comment on above: Performed By: #### T SH, LIPID, BMP, FT3, LIVER, T4 #### [facility] [address] [place] [address] Dr. Azam Camilo GLYCOHEMOGLOBIN A1Con 2022 ADA RECOMMENDATION SEE BELOW Normal The [facility] Comment on above: Result Comment: ADA RECOMMENDED LIMIT 4.0 - 6.0 ADA THERAPEUTIC TARGET < 7.0 ACTION SUGGESTED > 7.0 Performed By: #### A 1C #### [facility] [address] [place] [address] Dr. Azam Camilo Glucose [Mass/Vol] 146 mg/dL Normal [facility] Comment on above: Performed By: #### A 1C #### [facility] [address] [place] [address] Dr. Azam Camilo HbA1c (Bld) [Mass fraction] 6.7 % Critically high 4.5-6.2 [facility] Comment on above: Performed By: #### A 1C #### [facility] [address] [address] [address] Azam Camilo LIPID PROFILEon 10-27-2022 CHOL-HDL RATIO NORM SEE BELOW Normal [facility] Comment on above: Result Comment: 3.3 - 4.4 LOW RISK 4.4 - 7.1 AVERAGE RISK 7.1 - 11.0 MODERATE RISK >11.0 HIGH RISK Performed By: #### T SH, LIPID, BMP, FT3, LIVER, T4 #### [facility] [address] [address] [address] Azam Camilo Cholesterol [Mass/Vol] 136 mg/dL Normal <=200 [facility] Comment on above: Performed By: #### T SH, LIPID, BMP, FT3, LIVER, T4 #### [facility] [address] [address] [address] Azam Camilo Cholesterol in HDL [Mass/Vol] 31 mg/dL Critically low 40-60 [facility] Comment on above: Performed By: #### T SH, LIPID, BMP, FT3, LIVER, T4 #### [facility] [address] [address] [address] Azam Camilo Cholesterol in LDL [Mass/Vol] 81.2 mg/dL Normal [facility] Comment on above: Performed By: #### T SH, LIPID, BMP, FT3, LIVER, T4 #### [facility] [address] [address] [address] Azam Camilo Cholesterol.total/C holesterol in HDL [Mass ratio] 4.4 {ratio} Normal [facility] Comment on above: Performed By: #### T SH, LIPID, BMP, FT3, LIVER, T4 #### [facility] [address] [address] [address] Azam Camilo HDL NORMAL > or = 60 mg/dl - LO W CARDIOVASCULAR RISK <40 mg/dl - HIGH CARDIOVASCULAR RISK Normal [facility] Comment on above: Performed By: #### T SH, LIPID, BMP, FT3, LIVER, T4 #### [facility] [address] [address] [address] Azam Camilo LDL CALC NORMAL SEE BELOW Normal The [facility] Comment on above: Result Comment: <100 mg/dl OPTIMAL 100 - 129 mg/dl NEAR OR ABOVE OPTIMAL 130 - 159 mg/dl BORDERLINE HIGH 160 - 189 mg/dl HIGH >190 mg/dl VERY HIGH Performed By: #### T SH, LIPID, BMP, FT3, LIVER, T4 #### [facility] [address] [address] [address] Azam Camilo Triglyceride [Mass/Vol] 119 mg/dL Normal <=150 [facility] Comment on above: Performed By: #### T SH, LIPID, BMP, FT3, LIVER, T4 #### [facility] [address] [address] [address] Azam Camilo VLDL CALC 23.8 mg/dL Normal [facility] Comment on above: Performed By: #### T SH, LIPID, BMP, FT3, LIVER, T4 #### [facility] [address] [address] [address] Azam Camilo LIVER PROFILEon 10-27-2022 Albumin [Mass/Vol] 3.6 g/dL Normal 3.4-5.0 [facility] Comment on above: Performed By: #### T SH, LIPID, BMP, FT3, LIVER, T4 #### [facility] [address] [address] [address] Azam Camilo Albumin/Globulin [Mass ratio] 0.9 {ratio} Normal [facility] Comment on above: Performed By: #### T SH, LIPID, BMP, FT3, LIVER, T4 #### [facility] [address] [address] [address] Azam Camilo ALP [Catalytic activity/Vol] 103 U/L Normal 46-116 [facility] Comment on above: Performed By: #### T SH, LIPID, BMP, FT3, LIVER, T4 #### [facility] [address] [place] [address] Dr. Azam Camilo ALT [Catalytic activity/Vol] 39 U/L Normal 16-63 [facility] Comment on above: Performed By: #### T SH, LIPID, BMP, FT3, LIVER, T4 #### [facility] [address] [address] [address] Azam Camilo AST [Catalytic activity/Vol] 14 U/L Critically low 15-37 [facility] Comment on above: Performed By: #### T SH, LIPID, BMP, FT3, LIVER, T4 #### [facility] [address] [place] [address] Dr. Azam Camilo BILI, CONJUGATED 0.1 mg/dL Normal 0.0-0.2 [facility] Comment on above: Performed By: #### T SH, LIPID, BMP, FT3, LIVER, T4 #### [facility] [address] [address] [address] Azam Camilo Bilirubin [Mass/Vol] 0.3 mg/dL Normal 0.2-1.0 [facility] Comment on above: Performed By: #### T SH, LIPID, BMP, FT3, LIVER, T4 #### [facility] [address] [place] [address] Dr. Azam Camilo Globulin (S) [Mass/Vol] 4.1 g/dL Normal [facility] Comment on above: Performed By: #### T SH, LIPID, BMP, FT3, LIVER, T4 #### [facility] [address] [place] [address] Dr. Azam Camilo Protein [Mass/Vol] 7.7 g/dL Normal 6.4-8.[address] [facility] Comment on above: Performed By: #### T SH, LIPID, BMP, FT3, LIVER, T4 #### [facility] [address] [place] [address] Dr. Azam Camilo PROF CHEM 8 (BAS METB)on Anion gap [Moles/Vol] 11.1 mmol/L Normal [facility] Comment on above: Performed By: #### T SH, LIPID, BMP, FT3, LIVER, T4 #### [facility] [address] [place] [address] Dr. Azam Camilo Calcium [Mass/Vol] 8.6 mg/dL Normal 8.5-10.[address] [facility] Comment on above: Performed By: #### T SH, LIPID, BMP, FT3, LIVER, T4 #### [facility] [address] [address] [address] Azam Camilo Chloride [Moles/Vol] 104 mmol/L Normal 98-107 [facility] Comment on above: Performed By: #### T SH, LIPID, BMP, FT3, LIVER, T4 #### [facility] [address] [address] [address] Azam Camilo CO2 [Moles/Vol] 27.9 mmol/L Normal 21.0-32.0 [facility] Comment on above: Performed By: #### T SH, LIPID, BMP, FT3, LIVER, T4 #### [facility] [address] [address] [address] Azam Camilo Creatinine [Mass/Vol] 0.93 mg/dL Normal 0.70-1.30 [facility] Comment on above: Performed By: #### T SH, LIPID, BMP, FT3, LIVER, T4 #### [facility] [address] [place] [address] Dr. Azam Camilo EGFR-AF SIERRA LEONEAN >60 Normal >=60 [facility] Comment on above: Performed By: #### T SH, LIPID, BMP, FT3, LIVER, T4 #### [facility] [address] [place] [address] Dr. Azam Camilo EGFR-NON AF SIERRA LEONEAN >60 Normal >=60 [facility] Comment on above: Performed By: #### T SH, LIPID, BMP, FT3, LIVER, T4 #### [facility] [address] [place] [address] Dr. Azam Camilo Glucose [Mass/Vol] 133 mg/dL Critically high 74-106 [facility] Comment on above: Performed By: #### T SH, LIPID, BMP, FT3, LIVER, T4 #### [facility] [address] [place] [address] Dr. Azam Camilo Potassium [Moles/Vol] 4.0 mmol/L Normal 3.5-5.1 [facility] Comment on above: Performed By: #### T SH, LIPID, BMP, FT3, LIVER, T4 #### [facility] [address] [address] [address] Azam Camilo Sodium [Moles/Vol] 139 mmol/L Normal 136-145 [facility] Comment on above: Performed By: #### T SH, LIPID, BMP, FT3, LIVER, T4 #### [facility] [address] [address] [address] Azam Camilo Urea nitrogen [Mass/Vol] 15.0 mg/dL Normal 7.0-18.0 [facility] Comment on above: Performed By: #### T SH, LIPID, BMP, FT3, LIVER, T4 #### [facility] [address] [place] [address] Dr. Azam Camilo Urea nitrogen/Creatinine [Mass ratio] 16.1 mg/mg Normal [facility] Comment on above: Performed By: #### T SH, LIPID, BMP, FT3, LIVER, T4 #### [facility] [address] [address] [address] Azam Camilo T4on 10-27-2022 T4 [Mass/Vol] 7.80 ug/dL Normal 4.50-12.10 [facility] Comment on above: Performed By: #### T SH, LIPID, BMP, FT3, LIVER, T4 #### [facility] [address] [place] [address] Dr. Azam Camilo TSHon 10-27-2022 TSH 1.244 uIU/mL Normal 0.358-3.740 [facility] Comment on above: Performed By: #### T SH, LIPID, BMP, FT3, LIVER, T4 #### [facility] [address] [place] [address] Dr. Azam Camilo COVID Quick Testingon 2020 Result Negative [employer] Other Vital Signs Date Time Vital Sign Value Performing Clinician Ed mann 09-25-2023 09:22-0400 Body height 177.8 cm Jadyn Laird MD Work Phone: [employer] 09-25-2023 09:22-0400 Body mass index (BMI) [Ratio] 59.83 kg/m2 Jadyn Laird MD Work Phone: [facility] 09-25-2023 09:22-0400 Body weight 189.15 kg Jadyn Laird MD Work Phone: [facility] 09-25-2023 09:22-0400 Diastolic blood pressure 80 mm[Hg] Jadyn Laird MD Work Phone: [facility] 09-25-2023 09:22-0400 Heart rate 72 /min Jadyn Laird MD Work Phone: [facility] 09-25-2023 09:22-0400 SaO2% (BldA) [Mass fraction] 97 % Jadyn Laird MD Work Phone: [facility] 09-25-2023 09:22-0400 Systolic blood pressure 142 mm[Hg] Jadyn Laird MD Work Phone: [facility] 11-11-2022 14:18-0400 Blood Pressure Location Lissette HINES [facility] [place] 11-11-2022 14:18-0400 Diastolic blood pressure 88 mm[Hg] Lissette PALOMOL [facility] [place] 11-11-2022 14:18-0400 Heart rate 80 /min Lissette HINES [facility] [place] 11-11-2022 14:18-0400 Respiratory rate 16 /min Lissette NILL [facility] [place] 11-11-2022 14:18-0400 Systolic blood pressure 140 mm[Hg] Lissette HINES [facility] [place] Encounters Encounter Date Encounter Type Care Provider Facility Start: 11-09-2023 End: 11-10-2023 ambulatory JADYN LAIRD [facility] Start: 11-05-2023 End: 11-06-2023 ambulatory JADYN LAIRD [facility] Start: 09-25-2023 End: 09-25-2023 [facility] Start: 09-25-2023 Encounter for preprocedural cardiovascular examination [facility] Start: 09-25-2023 End: 09-25-2023 Office outpatient new 45 minutes Jadyn Laird MD Work Phone: [facility] Comment on above: Anginal equivalent ( Primary Dx); Preoperative cardiovascular examination; Hypertension, unspecified type; Peripheral edema Start: 09-25-2023 End: 09-25-2023 Patient encounter status Jadyn Laird MD Work Phone: [facility] Start: 09-24-2023 Telephone encounter Roxanna Henson LPN [facility] Start: 09-23-2023 Chart abstracting Scanning Pro vider External [facility] Start: 01-06-2023 ambulatory Lissette HINES Facility :[facility] Start: 12-31-2022 End: 01-01-2023 ambulatory Lissette HINES Facility:[id number] Start: 12-03-[address] LISSETTE HINES . Facil ity:[facility] Start: 11-11-2022 End: 11-12-2022 ambulatory Lissette HINES Facility:[facility] Start: 11-11-2022 End: 11-11-2022 Patient encounter procedure Lissette HINES [facility] [place] Start: 11-02-2022 Encounter for genera l adult medical examination without abnormal findings DR ELADIO WRIGHT . [facility] Start: 10-28-2022 ambulatory Lissette HINES Facility:[facility] [place] Start: 10-27-2022 End: 10-28-[address] ELADIO WRIGHT . Facility:[facility] Start: 10-27-2022 End: 10-28-2022 Encounter for general adult medical examination without abnormal findings DR ELADIO WRIGHT . Facility:[facility] Start: 06-29-2021 End: 06-29-2021 ambulatory Eladio Wright Other [employer] Other Start: 06-29-2021 Encounter by annabella Hendricks [facility] Start: 06-29-2021 Office outpatient vi sit 5 minutes Susanna Clark [facility] Procedures Date Procedure Procedure Detail Performing Clinician Start: 10-27-[address] BOB HINES . Comment on above: Performed By: #### P [facility] #### [facility] [address] [place] [address] Dr. Azam Camilo Vasectomy Lissette HINES Plan of Treatment Date Care Activity Detail Author Start: 09-24-2024 Adult BMI Screening Adult BMI Screening [employer] Start: 11-09-2023 End: 11-09-2023 Patient encounter procedure 11/09/2023 3:15 PM EDT Appointment [facility] [address] [place] [address] [facility] Start: 09-25-2023 End: 09-24-2024 CTA Heart and Coronary arteries WO and W contrast IV CT angiogram coronary arteries with or without scoring Imaging Routine Anginal equivalent Expected: 09/25/2023, Expires: 09/24/2024 [employer] Work Phone: Comment on above: Expected: 09/25/2023, Expires: Start: 09-25-2023 End: 09-24-2024 Echo complete W/O contrast Echo complete W/O contrast Echocardiography Routine Preoperative cardiovascular examination Anginal equivalent Expected: 09/25/2023, Expires: 09/24/2024 [employer] Comment on above: Expected: 09/25/2023, Expires: Start: 09-25-2023 End: 09-25-2023 Patient encounter procedure 09/25/2023 9:00 AM EDT Office Visit [facility] [address] [place] [address] Jadyn Laird MD [address] [place] [address] [facility] Start: 03-13-2023 COVID-19 Vaccine ( season) COVID-19 Vaccine ( season) [facility] Start: 03-13-2023 Influenza vaccination Influenza Vaccine [facility] Start: 2020 Administration of varicella zoster vaccine Zoster (Shingles) Vaccine (1 of 2) [facility] Start: 1989 DTaP,Tdap and Td Vaccines (1 - Tdap) DTaP,Tdap and Td Vaccines (1 - Tdap) [facility] Start: 1988 Adult BMI Follow Up Plan Adult BMI Follow Up Plan [facility] Start: 1988 Adult BMI Screening Adult BMI Screening [facility] Start: 1982 Depression Screening Depression Screening [facility] Start: 1982 Tobacco Screening Tobacco Screening [facility] Start: 1970 Tobacco Counseling Tobacco Counseling [facility] Immunizations Immunization Date Immunization Notes Care Provider Fa cility 10-19-2020 SARS-CoV-2 (COVID-19 ) Ad26 vaccine, recombinant Lissette HINES [facility] [place] Comment on above: Result Comment: 2022: TPV50 NEGATED: Highlighted row has not occurred!11-11-2022 influenza virus vaccine, unspecified formulation Lissette HINES [facility] [place] Payers Date Payer Category Payer Private Health Insurance [facility] PLUS [id number] 2022-Present [phone] [address] [address] [place] [address] [id number] 1970 Unknown [id number] [id number]. 2.593 1970 Unknown [id number] [id number]. 2.593 1970 Unknown [id number] [id number]. 2.727 1970 Unknown [id number] [id number]. 2.727 1970 Unknown [id number] [id number]. 2.727 1970 Unknown [id number] [id number]. 2.1286 1970 Unknown [id number] [id number]. 2.1286 1970 Unknown [id number] [id number]. 2.1286 1959 Unknown [id number] Unknown [id number] Social History Date Type Detail Facility Start: 12-22-2018 End: 09-25-2023 Sex Assigned At [facility] Start: 11-11-2022 Tobacco smoking status Ex-smoker (finding) [facility] [place] Tobacco smoking status Never [facility] Tobacco smoking status MNIS Tobacco smoking consumption unknown [facility] Start: 12-22-2018 End: 09-25-2023 History of Social function [facility] Start: 1970 Sex Assigned At Not on file 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 Referring Physician: Chay Shelton MD [address] [place] [address] CTA cors ordered during OV. Per AY, pt to take Lopressor 25 mg just 2 hours prior (no 12 hours prior). Pt given instruction sheet and v/u all instructions as relayed by RN. Paper order given to cath RN. [facility] Miscellaneous Notes Left message for patient to remind them to bring their most current medication list with them to their appointment. [facility]-24-[facility]23 Telephone encounter Note Left message for patient to remind them to bring their most current medication list with them to their appointment. [facility] 11-11-2022 Note Chief Complaint consultation for [...] (COVID-19) Ad26 vaccine 10/19/2020 Recorded 2022-11-06: [id number] [facility] Comment on above: Result Comment: Elec [...] Patient care instructions given in writting by [facility] Care At Home document. [employer] Other Evaluation + Plan note No data available for this section General Surgery [place] Evaluation noteNo InformationNort [employer] Other Evaluation note* Diagnosis Anginal equivalent- Primary Preoperative cardiovascular examination Pre-operative cardiovascular examination Hypertension, unspecified type Peripheral edema Edema documented [facility] - Reported* Type Description Date Medical History Diabetic type II [employer] Other Hospital Discharge instructions No data available for this section General Surgery [place] InstructionsNot on filedocumented in this encounter [facility] filed[facility] in this [facility] on filedocumented in [facility] No data available for this [...] Laird MD [address] [place] [address] Referral ID Status Reason Start Date Expiration Date V isits Requested Visits Authorized [id number] Pending Review 09/25/2023 09/24/2024 1 1 Specialty Diagnoses / Procedures Referred By Ciarra t Referred To Contact Radiology Diagnoses Anginal equivalent Procedures CT angiogram coronary arteries with or without scoring Jadyn Laird MD [address] [place] [address] Referral ID Status Reason Start Date Expiration Date V isits Requested Visits Authorized [id number] Pending Review 09/25/2023 09/24/2024 1 1 Additional Source Comments REASON FOR VISIT (unrecogniz ed section and content) Reason Comments 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[facility]:Hypertension, unspecified type [I10]; Peripheral edema [R60.9], Pre op Clearance-never seen cardio-sched w pt Specialty Diagnoses / Procedures Referred By Ciarra hunter Referred To Contact Cardiology Diagnoses Hypertension, unspecified type Peripheral edema Chay Shelton MD [address] [facility] [address] [place] [address] Rom Yung, DO [address] [facility] [facility] [place] [address] Referral ID Status Reason Start Date Expiration Date Visits Requested Visits Authorized [id number] Pending Review Specialty Services Required 09/23/2023 09/22/2024 1 1 Patient Care team informatio n (unrecognized section and content) Personnel Name: Eladio Wright MD Address: Address: [address] [place] [address] [place] [address] [place] [id number] (unrecognized sect ion and content) No Status Records FoundNo Status Records FoundNo Status Records Found INFORMATION SOURCE (unrecogn ized section and content) DATE CREATED AUTHOR 11/26/2022 [facility] DATE CREATED AUTHOR AUTHOR'S ORGANIZ ATION 01/13/2023 [facility] DATE CREATED AUTHOR AUTHOR'S ORGANIZ ATION 11/10/2023 [facility] FOR RECORDS PERTAINING TO PATIENTS WHO ARE [...] BE BASED ON THE PRIMARY CLINICAL RECORDS. [facility] [employer] provides no warranty or guarantee of the accuracy or completeness of information in this document.
[2024-07-12 13:00] LABS: Alanine Aminotransferase 64 U/L (16-63); Albumin Globulin Ratio 0.9; Albumin Level 3.6 g/dL (3.4-5.0); Alkaline Phosphatase 125 U/L (46-116); Anion Gap 11.8; Aspartate Amino Transferase 28 U/L (15-37); BUN Creatinine Ratio 13.1; Bilirubin Total 0.5 mg/dL (0.2-1.0); Calcium 8.9 mg/dL (8.5-10.1); Carbon Dioxide 29.9 mmol/L (21.0-32.0); Chloride 104 mmol/L (98-107); Chol HDL Ratio 4.4; Cholesterol 122 mg/dL (<=200); Estimated GFR (African America >60 (>=60 mL/min/1.73m^2); Estimated GFR (Non-African Ame >60 (>=60 mL/min/1.73m^2); Free T3 2.66 pg/mL (2.18-3.98); Globulin 3.9 g/dL; Glucose 98 mg/dL (74-106); HDL Cholesterol 28 mg/dL (40-60); Potassium 3.7 mmol/L (3.5-5.1); Sodium 142 mmol/L (136-145); Thyroid Stimulating Hormone 0.875 uIU/mL (0.358-3.740); Total Protein 7.5 g/dL (6.4-8.2); Triglycerides 95 mg/dL (<=150)
[2024-07-12 13:13] LABS: Basophils Percent Auto 0.3 % (0.2-2.0); Eosinophils Absolute Auto 0.2 10^3/uL (0.0-0.7); Eosinophils Percent Auto 1.7 % (0.9-7.0); Hematocrit 44.8 % (42.0-54.0); Hemoglobin 14.6 g/dL (14.0-18.0); Immature Granulocytes Abs Auto 0.02 10^3/uL (0.00-0.03); Immature Granulocytes Pct Auto 0.2 % (0.0-0.5); Lymphocytes Absolute Auto 2.7 10^3/uL (1.2-3.8); Lymphocytes Percent Auto 27.8 % (20.5-60.0); Mean Corpuscular HGB Conc 32.6 g/dL (29.9-35.2); Mean Corpuscular Hemoglobin 28.5 pg (25.9-34.0); Mean Corpuscular Volume 87.5 fL (80.0-94.0); Mean Platelet Volume 12.8 fL (9.5-13.5); Monocytes Absolute Auto 0.6 10^3/uL (0.3-0.8); Monocytes Percent Auto 5.7 % (1.7-12.0); Neutrophils Absolute Auto 6.2 10^3/uL (1.4-6.5); Neutrophils Percent Auto 64.3 % (43.0-75.0); Platelet Count 258 10^3/uL (150-450); Red Blood Count 5.12 10^6/uL (4.70-6.10); Red Cell Distribution Width 13.7 % (11.0-15.0); White Blood Count 9.6 10^3/uL (4.0-11.0)
[2024-07-12 13:16] LABS: Prostate Specific Antigen Scrn 0.35 ng/mL (<=4.00)
[2024-07-12 13:43] LABS: Estimated Average Glucose 100 mg/dL; Glycohemoglobin A1C 5.1 % (4.5-6.2)
== END 2024-07-12 12:06 | disposition home or self-care (01) ==
LOC: LAB 12:08
PROVIDERS: PCP Family Medicine; Visit Provider Family Medicine
DX: R60.9 Edema, unspecified (principal); E78.1 Pure hyperglyceridemia; R73.09 Other abnormal glucose; E03.9 Hypothyroidism, unspecified; Z12.5 Encounter for screening for malignant neoplasm of prostate
CPT/HCPCS: 36415; 80053; 80061; 83036; 84436; 84443; 84481; 85025; G0103